=== PATIENT | female | born 1990 | race Caucasian/White ===

== ENCOUNTER 2019-10-09 17:39 | Emergency (ER) | payer OTHER ==
[2019-10-09 18:49] LABS: Urine Bacteria >50 /HPF (<20); Urine RBC <5 /HPF (NONE SEEN)
[2019-10-09 18:50] LABS: Urine Blood NEGATIVE (NEG); Urine Glucose NEGATIVE (NEG); Urine Protein NEGATIVE (NEG); Urine pH 5.5 (5.0-7.0)
--- NOTE | 2019-10-09 18:58 | ER ---
Nurse's Notes [facility] Name: Lluvia Meeks Age: 29 yrs Sex: Female : 1990 Arrival Date: 10/09/2019 Time: 17:43 Bed 8 Private MD: Diagnosis: Otitis media, unspecified, right ear;Acute sinusitis;Urinary tract infection, site not specified Presentation: 10/09 17:50 Chief complaint: Patient states: Cough/congestion for 5 days. Went to urgent care ll1 Sunday, diagnosed with a cold. States she feels worse since then. 31 weeks G3, P0. Denies vaginal bleeding/abdominal cramping. Coronavirus screen: The patient has NOT traveled to [place] in the past 14 days. Proceed with normal triage procedures. Ebola Screen: No symptoms or risks identified at this time. Initial Sepsis Screen: Does the patient meet any 2 criteria? HR > 90 bpm. No. Patient's initial sepsis screen is negative. Does the patient have a suspected source of infection? No. Patient's initial sepsis screen is negative. Risk Assessment: Do you want to hurt yourself or someone else? Patient reports no desire to harm self or others. 17:50 Method Of Arrival: Ambulatory ll1 17:50 Acuity: CONNER 4 ll1 18:03 Onset of symptoms was October 03, 2019. 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 - Social history:: Patient/guardian denies using alcohol, street drugs, tobacco products, Smoking status: Patient denies any tobacco usage or history of. Screenin:03 Abuse screen: Denies threats or abuse. Denies injuries from another. Nutritional sv screening: No deficits noted. Tuberculosis screening: No symptoms or risk factors identified. Fall Risk None identified. Assessment: 18:03 General: Appears in no apparent distress. comfortable, well developed, Behavior is sv calm, cooperative, appropriate for age. Pain: Complains of pain in right ear Pain currently is 8 out of 10 on a pain scale. Neuro: Level of Consciousness is awake, alert, obeys commands, Oriented to person, place, time, situation, Moves all extremities. Full function Gait is steady, Speech is normal. Cardiovascular: Heart tones S1 S2 present Murmur present Patient's skin is warm and dry. Respiratory: Reports cough that is non-productive, persistent congestion Airway is patent Respiratory effort is even, unlabored, Respiratory pattern is regular, symmetrical, Breath sounds are clear bilaterally. 18:03 EENT: Reports nasal congestion since 6 days ago pain in right ear. Derm: Skin is sv intact, Skin is pink, warm \T\ dry. Musculoskeletal: Range of motion: intact in all extremities. 18:12 Reassessment: Verbal order to not obtain UPT per Gabriella Arthur NP. ss 19:08 Reassessment: Patient appears in no apparent distress at this time. Patient is alert, rr5 oriented x 3, equal unlabored respirations, skin warm/dry/pink. discharge instruction given and explained without complaints made. Vital Signs: 17:50 BP 139 / 95; Pulse 114; Resp 19; Temp 98.2; Pulse Ox 100% ; Weight 84.82 kg; Height 5 ll1 ft. 4 in. (162.56 cm); Pain 8/10; 17:50 Body Mass Index 32.10 (84.82 kg, 162.56 cm) ll1 Vitals: 18:26 Heart Tones 156. sv ED Course: 17:43 Patient arrived in ED. fj1 17:43 [facility]. kb 17:43 Reinaldo Cotto MD is Attending Physician. kb 17:52 Triage completed. ll1 17:53 Arm band placed on left wrist. Patient placed in an exam room. ll1 18:02 Amanda Saravia, RN is Primary Nurse. sv 18:03 Patient has correct armband on for positive identification. Placed in gown. Bed in low sv position. Call light in reach. Adult w/ patient. Door closed. Head of bed elevated. 18:03 Flu and/or RSV swab sent to lab. sv 18:10 Urine collected: clean catch specimen, cloudy, sediment noted. dh3 18:15 Awaiting lab results. sv 18:52 Urine Culture Sent. sv 19:04 Primary Nurse role handed off by Amanda Saravia, RN sv 19:09 No provider procedures requiring assistance completed. Patient did not have IV access rr5 during this emergency room visit. Administered Medications: No medications were administered Outcome: 18:57 Discharge ordered by . tre 19:05 Discharged to home ambulatory. rr5 19:05 Condition: stable 19:05 Discharge instructions given to patient, Instructed on discharge instructions, follow up and referral plans. Demonstrated understanding of instructions, follow-up care, medications, Prescriptions given X 1. 19:10 Patient left the ED. rr5 Signatures: Gabriella Arthur, ABIGAIL DORMAN-Amanda Alston, RN RN sv Bailey Harley RN RN Anjelica Bernard 3 Alan Dwyer RN RN rr5 Mo Aviles 1 Holly Yanez RN RN ll1 Corrections: (The following items were deleted from the chart) 18:16 18:03 Respiratory: Reports cough that is non-productive, persistent congestion Airway sv is patent Respiratory effort is even, unlabored, Respiratory pattern is regular, symmetrical, sv 18:16 18:03 EENT: Reports pain in right ear sv sv 18:51 16:03 Flu and/or RSV swab sent to lab. sv sv
--- NOTE | 2019-10-09 18:58 | EDPHYS ---
Physician Documentation [facility] Name: Lluvia Meeks Age: 29 yrs Sex: Female : 1990 Arrival Date: 10/09/2019 Time: 17:43 Bed 8 Private MD: ED Physician Reinaldo Cotto HPI: 10/09 18:09 This 29 yrs old Female presents to ER via Ambulatory with complaints of kb Congestion, Cough. 18:09 The patient or guardian reports sinus and chest congestion. Onset: The symptoms/episode kb began/occurred 6 day(s) ago. Severity of symptoms: At their worst the symptoms were moderate, in the emergency department the symptoms are unchanged. Modifying factors: The symptoms are alleviated by nothing, the symptoms are aggravated by nothing. Associated signs and symptoms: The patient has no apparent associated signs or symptoms. The patient has not experienced similar symptoms in the past. The patient has not recently seen a physician. Pt reports nasal and chest congestion for 6 days. Denies fever. 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 - Social history:: Patient/guardian denies using alcohol, street drugs, tobacco products, Smoking status: Patient denies any tobacco usage or history of. ROS: 18:03 Constitutional: Negative for fever, chills, and weight loss, Neck: Negative for injury, kb pain, and swelling, Cardiovascular: Negative for chest pain, palpitations, and edema, Respiratory: Negative for shortness of breath, cough, wheezing, and pleuritic chest pain, Abdomen/GI: Negative for abdominal pain, nausea, vomiting, diarrhea, and constipation, Back: Negative for injury and pain, MS/Extremity: Negative for injury and deformity, Skin: Negative for injury, rash, and discoloration, Neuro: Negative for headache, weakness, numbness, tingling, and seizure. 18:03 ENT: Positive for ear pain, sinus congestion. Exam: 18:06 Constitutional: This is a well developed, well nourished patient who is awake, alert, kb and in no acute distress. Head/Face: Normocephalic, atraumatic. Neck: Trachea midline, no thyromegaly or masses palpated, and no cervical lymphadenopathy. Supple, full range of motion without nuchal rigidity, or vertebral point tenderness. No Meningismus. Chest/axilla: Normal chest wall appearance and motion. Nontender with no deformity. No lesions are appreciated. Cardiovascular: Regular rate and rhythm with a normal S1 and S2. No gallops, murmurs, or rubs. Normal PMI, no JVD. No pulse deficits. Respiratory: Lungs have equal breath sounds bilaterally, clear to auscultation and percussion. No rales, rhonchi or wheezes noted. No increased work of breathing, no retractions or nasal flaring. Abdomen/GI: Soft, non-tender, with normal bowel sounds. No distension or tympany. No guarding or rebound. No evidence of tenderness throughout. Skin: Warm, dry with normal turgor. Normal color with no rashes, no lesions, and no evidence of cellulitis. MS/ Extremity: Pulses equal, no cyanosis. Neurovascular intact. Full, normal range of motion. Neuro: Awake and alert, GCS 15, oriented to person, place, time, and situation. Cranial nerves II-XII grossly intact. Motor strength 5/5 in all extremities. Sensory grossly intact. Cerebellar exam normal. Normal gait. 18:06 ENT: External ear(s): are unremarkable, Ear canal(s): are normal, TM's: bulging, on the right, erythema, that is moderate, on the right, Nose: is normal, Mouth: is normal, Posterior pharynx: is normal. Vital Signs: 17:50 BP 139 / 95; Pulse 114; Resp 19; Temp 98.2; Pulse Ox 100% ; Weight 84.82 kg; Height 5 ll1 ft. 4 in. (162.56 cm); Pain 8/10; 17:50 Body Mass Index 32.10 (84.82 kg, 162.56 cm) ll1 MDM: 17:56 Patient medically screened. kb 18:03 Data reviewed: vital signs, nurses notes. Data interpreted: Pulse oximetry: on room air kb is 100 %. Interpretation: normal. 18:08 ED course: Educated on use of zyrtec and flonase. Pt has been taking robitussin and kb zyrtec for her symptoms already. Will prescribe antibiotics for right otitis media. . 18:57 Counseling: I had a detailed discussion with the patient and/or guardian regarding: the kb historical points, exam findings, and any diagnostic results supporting the discharge/admit diagnosis, lab results, the need for outpatient follow up, an OB/Gyne specialist, to return to the emergency department if symptoms worsen or persist or if there are any questions or concerns that arise at home. 10/09 17:54 Order name: Flu; Complete Time: 18:56 kb 10/09 18:11 Order name: Urine Microscopic Only; Complete Time: 18:52 kb 10/09 17:54 Order name: Urine Dipstick-Ancillary (obtain specimen); Complete Time: 18:10 kb 10/09 18:12 Order name: FHT's; Complete Time: 18:26 kb 10/09 18:13 Order name: Urine Dipstick--Ancillary (enter results); Complete Time: 18:52 dh4 10/09 18:51 Order name: Urine Culture EDMS Administered Medications: No medications were administered Disposition: 10/09/19 18:57 Discharged to Home. Impression: Otitis media, unspecified, right ear, Acute sinusitis, Urinary tract infection, site not specified. - Condition is Stable. - Discharge Instructions: Otitis Media, Adult, [id number], Sinusitis, Adult, [id number], and Urinary Tract Infection. - Prescriptions for Amoxicillin 875 mg Oral Tablet - take 1 tablet by ORAL route every 12 hours for 7 days; 14 tablet. - Medication Reconciliation Form, Thank You Letter, Antibiotic Education, Prescription Opioid Use, Work release form form. - Follow up: Emergency Department; When: As needed; Reason: Worsening of condition. Follow up: Private Physician; When: 2 - 3 days; Reason: Recheck today's complaints, Continuance of care, Re-evaluation by your physician. Addendum: 10/30/2019 07:21 Co-signature as Attending Physician, Reinaldo Cotto MD Available for consultation at p s1 all times. . Signatures: Dispatcher [employer] EDMS Gabriella Arthur, ABIGAIL DORMAN-Amanda Alston RN RN sv Singer, Phillip, MD MD [facility] Alan Dwyer RN RN rr5 Beau, Lynsay, RN RN ll1 Corrections: (The following items were deleted from the chart) 10/09 19:10 18:57 10/09/2019 18:57 Discharged to Home. Impression: Otitis media, unspecified, right rr5 ear; Acute sinusitis; Urinary tract infection, site not specified. Condition is Stable. Discharge Instructions: Otitis Media, Adult, [id number], Sinusitis, Adult, [id number]. Prescriptions for Amoxicillin 875 mg Oral Tablet - take 1 tablet by ORAL route every 12 hours for 7 days; 14 tablet. and Forms are Medication Reconciliation Form, Thank You Letter, Antibiotic Education, Prescription Opioid Use. Follow up: Emergency Department; When: As needed; Reason: Worsening of condition. Follow up: Private Physician; When: 2 - 3 days; Reason: Recheck today's complaints, Continuance of care, Re-evaluation by your physician. kb
[2019-10-09 19:21] VITALS: BP 139/95; TEMP 98.2; O2SAT 100
== END 2019-10-09 19:10 | disposition home or self-care (01) ==
LOC: ER 17:39
DX: J01.90 Acute sinusitis, unspecified (principal); H66.91 Otitis media, unspecified, right ear; N39.0 Urinary tract infection, site not specified
CPT/HCPCS: 81003; 81015; 87086; 87088; 87804; 99283

== ENCOUNTER 2020-12-31 03:48 | Emergency (ER) | payer OTHER ==
--- NOTE | 2020-12-31 06:03 | ER ---
Nurse's Notes [facility] Name: Lluvia Costa Age: 30 yrs Sex: Female : 1990 Arrival Date: 12/31/2020 Time: 03:51 Bed 20 Private MD: Diagnosis: Acute tonsillitis Presentation: 12/31 04:52 Chief complaint: Patient states: woke up with her throat feeling swollen and it's hard iw to breathe because of it, started having a lot of nasal drainage two nights ago, no fever. Coronavirus screen: At this time, the client does not indicate any symptoms associated with coronavirus-19. Ebola Screen: Patient negative for fever greater than or equal to 101.5 degrees Fahrenheit, and additional compatible Ebola Virus Disease symptoms Patient denies exposure to infectious person. Patient denies travel to an Ebola-affected area in the 21 days before illness onset. No symptoms or risks identified at this time. Initial Sepsis Screen: Does the patient meet any 2 criteria? No. Patient's initial sepsis screen is negative. Does the patient have a suspected source of infection? No. Patient's initial sepsis screen is negative. Risk Assessment: Do you want to hurt yourself or someone else? Patient reports no desire to harm self or others. Onset of symptoms was December 30, 2020. 04:52 Method Of Arrival: Ambulatory iw 04:52 Acuity: CONNER 4 iw Historical: - Allergies: 04:55 Ciprofloxacin; iw 04:55 Zithromax; iw - Home Meds: 04:55 None [Active]; iw - PMHx: 04:55 tetralogy of fallot; iw - PSHx: 04:55 repair of tetralogy of fallot; ear surgery; ; iw - Immunization history:: Adult Immunizations not up to date, Client reports having NOT received the Covid vaccine. - Social history:: Smoking status: Patient denies any tobacco usage or history of. Screenin:56 Abuse screen: Denies threats or abuse. Denies injuries from another. Nutritional iw screening: No deficits noted. Tuberculosis screening: No symptoms or risk factors identified. Fall Risk None identified. Assessment: 04:55 General: Appears in no apparent distress. comfortable, Behavior is calm, cooperative. iw Pain: Complains of pain in throat. Neuro: Level of Consciousness is awake, alert, obeys commands, Oriented to person, place, time, situation. Cardiovascular: Rhythm is regular. Respiratory: Airway is patent Respiratory effort is even, unlabored. 05:00 Respiratory: Reports cough that is non-productive, Breath sounds are clear bilaterally. iw EENT: Throat is pink has enlarged tonsils bilaterally. Derm: Skin is intact, is healthy with good turgor. Musculoskeletal: Range of motion: intact in all extremities. Vital Signs: 04:52 BP 140 / 93; Pulse 80; Resp 16; Pulse Ox 99% on R/A; Weight 86.18 kg; Height 5 ft. 4 iw in. (162.56 cm); 04:52 Body Mass Index 32.61 (86.18 kg, 162.56 cm) iw ED Course: 03:51 Patient arrived in ED. bp1 04:54 Triage completed. iw 04:55 Piper Schultz, RN is Primary Nurse. iw 04:55 Arm band placed on. iw 05:18 Brian Torres MD is Attending Physician. john 06:01 Gerald Rosa DO is Referral Physician. john 06:28 Chest Single View XRAY In Process Unspecified. EDMS 06:45 No provider procedures requiring assistance completed. Patient did not have IV access iw during this emergency room visit. Administered Medications: 06:29 Drug: Decadron (dexamethasone) 10 mg Route: IM; Site: right ventrogluteal; iw 06:30 Drug: Bicillin L-A (penicillin G Benzathine) 1.8 million units Route: IM; Site: right iw ventrogluteal; Outcome: 06:02 Discharge ordered by . john 06:53 Patient left the ED. iw Signatures: Dispatcher [employer] EDMS Brian Torres MD MD cha Williams, Irene, RN RN iw Adele Gonsalez bp1 Corrections: (The following items were deleted from the chart) 05:00 04:55 Neuro: Level of Consciousness is awake, alert, obeys commands, Oriented to iw person, place, time, situation, iw
--- NOTE | 2020-12-31 06:03 | EDPHYS ---
Physician Documentation [facility] Name: Lluvia Costa Age: 30 yrs Sex: Female : 1990 Arrival Date: 12/31/2020 Time: 03:51 Bed 20 Private MD: ED Physician Brian Torres HPI: 12/31 05:58 This 30 yrs old Female presents to ER via Ambulatory with complaints of john Breathing Difficulty. 05:58 The patient has shortness of breath at rest. Onset: The symptoms/episode began/occurred john 1 day(s) ago. Duration: The symptoms are continuous, and are unchanged since they started. The patient's shortness of breath has no apparent modifying factors. Associated signs and symptoms: The patient has no apparent associated signs or symptoms. Severity of symptoms: At their worst the symptoms were mild in the emergency department the symptoms are unchanged. Historical: - Allergies: 04:55 Ciprofloxacin; iw 04:55 Zithromax; iw - Home Meds: 04:55 None [Active]; iw - PMHx: 04:55 tetralogy of fallot; iw - PSHx: 04:55 repair of tetralogy of fallot; ear surgery; ; iw - Immunization history:: Adult Immunizations not up to date, Client reports having NOT received the Covid vaccine. - Social history:: Smoking status: Patient denies any tobacco usage or history of. ROS: 05:59 Constitutional: Negative for fever, chills, and weight loss, Eyes: Negative for injury, john pain, redness, and discharge, Neck: Negative for injury, pain, and swelling, Cardiovascular: Negative for chest pain, palpitations, and edema, Respiratory: Negative for shortness of breath, cough, wheezing, and pleuritic chest pain, Abdomen/GI: Negative for abdominal pain, nausea, vomiting, diarrhea, and constipation, Back: Negative for injury and pain, : Negative for injury, bleeding, discharge, and swelling, MS/Extremity: Negative for injury and deformity, Skin: Negative for injury, rash, and discoloration, Neuro: Negative for headache, weakness, numbness, tingling, and seizure, Psych: Negative for depression, anxiety, suicide ideation, homicidal ideation, and hallucinations, Allergy/Immunology: Negative for hives, rash, and allergies, Endocrine: Negative for neck swelling, polydipsia, polyuria, polyphagia, and marked weight changes, Hematologic/Lymphatic: Negative for swollen nodes, abnormal bleeding, and unusual bruising. 05:59 ENT: Positive for sore throat. Exam: 05:59 Constitutional: This is a well developed, well nourished patient who is awake, alert, john and in no acute distress. Head/Face: Normocephalic, atraumatic. Eyes: Pupils equal round and reactive to light, extra-ocular motions intact. Lids and lashes normal. Conjunctiva and sclera are non-icteric and not injected. Cornea within normal limits. Periorbital areas with no swelling, redness, or edema. Neck: Trachea midline, no thyromegaly or masses palpated, and no cervical lymphadenopathy. Supple, full range of motion without nuchal rigidity, or vertebral point tenderness. No Meningismus. Chest/axilla: Normal chest wall appearance and motion. Nontender with no deformity. No lesions are appreciated. Cardiovascular: Regular rate and rhythm with a normal S1 and S2. No gallops, murmurs, or rubs. Normal PMI, no JVD. No pulse deficits. Respiratory: Lungs have equal breath sounds bilaterally, clear to auscultation and percussion. No rales, rhonchi or wheezes noted. No increased work of breathing, no retractions or nasal flaring. Abdomen/GI: Soft, non-tender, with normal bowel sounds. No distension or tympany. No guarding or rebound. No evidence of tenderness throughout. Back: No spinal tenderness. No costovertebral tenderness. Full range of motion. Skin: Warm, dry with normal turgor. Normal color with no rashes, no lesions, and no evidence of cellulitis. MS/ Extremity: Pulses equal, no cyanosis. Neurovascular intact. Full, normal range of motion. Neuro: Awake and alert, GCS 15, oriented to person, place, time, and situation. Cranial nerves II-XII grossly intact. Motor strength 5/5 in all extremities. Sensory grossly intact. Cerebellar exam normal. Normal gait. Psych: Awake, alert, with orientation to person, place and time. Behavior, mood, and affect are within normal limits. 05:59 ENT: Posterior pharynx: Tonsils: bilaterally enlarged, with erythema, with exudate, Uvula: midline, non-edematous, no erythema, swelling, that is mild, erythema, that is mild, exudate, is not appreciated, peritonsillar mass, is not appreciated, pooling of secretions, is not appreciated. Vital Signs: 04:52 BP 140 / 93; Pulse 80; Resp 16; Pulse Ox 99% on R/A; Weight 86.18 kg; Height 5 ft. 4 iw in. (162.56 cm); 04:52 Body Mass Index 32.61 (86.18 kg, 162.56 cm) MDM: 05:18 Patient medically screened. [facility] 06:00 Differential diagnosis: Bronchitis reactive airway disease. Antibiotic administration: [facility] Not indicated. The patient's Wells Deep Vein Thrombosis Score was calculated as follows: Total Score: 0-2 Pts- Low Risk. Differential Diagnosis: Obstructed Airway Bronchitis Influenza Upper Respiratory Infection Sinusitis Pharyngitis Otitis Media Pneumonia. The patient's pulmonary embolism risk score was calculated as follows: Total Score: 0-2 points. This patient was found to be at low risk for a pulmonary embolism by using the Well's assessment criteria. Immunization status:. Data reviewed: vital signs, nurses notes. Data interpreted: pleater hand: rate is 80 beats/min, Pulse oximetry: is not applicable for this patient encounter. 12/31 05:13 Order name: Strep 12/31 05:14 Order name: Group A Streptococcus Rapid Sc [facility] 12/31 06:03 Order name: Chest Single View XRAY [facility] 12/31 06:10 Order name: Throat Culture [facility] Administered Medications: 06:29 Drug: Decadron (dexamethasone) 10 mg Route: IM; Site: right ventrogluteal; 06:30 Drug: Bicillin L-A (penicillin G Benzathine) 1.8 million units Route: IM; Site: right iw ventrogluteal; Disposition: 12/31/20 06:02 Discharged to Home. Impression: Acute tonsillitis. - Condition is Stable. - Discharge Instructions: Tonsillitis, Tonsillitis, [id number]. - Medication Reconciliation Form, Thank You Letter, Antibiotic Education, Prescription Opioid Use, Work release form form. - Follow up: Private Physician; When: 2 - 3 days; Reason: Recheck today's complaints, Continuance of care, Re-evaluation by your physician. Follow up: Gerald Rosa DO; When: 2 - 3 days; Reason: Recheck today's complaints, Continuance of care, Re-evaluation by your physician. - Problem is new. - Symptoms have improved. Signatures: Dispatcher [employer] Brian Raphael MD MD cha Williams, Irene, RN RN iw Corrections: (The following items were deleted from the chart) 06:53 06:02 12/31/2020 06:02 Discharged to Home. Impression: Acute tonsillitis. Condition is iw Stable. Forms are Medication Reconciliation Form, Thank You Letter, Antibiotic Education, Prescription Opioid Use. Follow up: Private Physician; When: 2 - 3 days; Reason: Recheck today's complaints, Continuance of care, Re-evaluation by your physician. Follow up: Gerald Rosa; When: 2 - 3 days; Reason: Recheck today's complaints, Continuance of care, Re-evaluation by your physician. Problem is new. Symptoms have improved. john
[2020-12-31] MEDS ORDERED: dexAMETHasone 10 MG/ML VIAL ONE (06:36)
[2020-12-31] MEDS ORDERED: PEN G BENZ LA 2.4 MU/4 ML SYRINGE IM ONE (06:36)
[2020-12-31 07:08] VITALS: BP 140/93; O2SAT 99
--- NOTE | 2020-12-31 08:55 | RAD REPORT ---
EXAM DESCRIPTION: RAD - Chest Single View - 12/31/2020 6:28 am CLINICAL HISTORY: COUGH Chest pain. COMPARISON: No comparisons FINDINGS: Portable technique limits examination quality. The lungs are grossly clear. The heart is upper limit of normal in size. Sternotomy wires. IMPRESSION: No acute intrathoracic process suspected.
== END 2020-12-31 06:53 | disposition home or self-care (01) ==
LOC: ER 03:48
DX: J03.90 Acute tonsillitis, unspecified (principal); Z88.1 Allergy status to other antibiotic agents
CPT/HCPCS: 87070; 87081; 71045; 96372; 99283; J0561; J1100

== ENCOUNTER 2022-07-31 12:59 | Emergency (ER) | payer BC, OTHER ==
--- OUTSIDE RECORDS SUMMARY | 2022-07-31 13:02 | XMS REPORT | Continuity of Care Document ---
:1990 Author Organization [facility] t Address [address] [place] [address] Dr. [address] [place] [address] Care Team Providers Name Role Phone Yvette Vasquez Attending Clinician Unavailable Marie Watts Attending Clinician Unavailable Darcy Valdivia PA-C Attending Clinician UNKNOWN, ATTENDING Attending Clinician Unavailable KNOW, DOES_NOT Admitting Clinician Unavailable Yvette Vasquez Admitting Clinician Unavailable Payers Payer Name Policy Type Policy Number Effective Date Expiration Date [facility] [id number] 2019 CHOICE MEDICAID 00:00:00 Problems This patient has no known problems. Allergies, Adverse Reactions, Alerts Allergy Allergy Status Severity Reaction(s) Onset Inactive Treating Comm ents Source Name Type Date Date Clinician ciproflo DA Active U 2020-0 [facility] xacin 3-23 Clear 00:00: Otto 00 [facility] azithrom DA Active U 2020-0 [facility] ycin 3-23 Clear 00:00: Otto 00 [facility] ciproflo DA Active U HIVES 2020-0 [facility] xacin 3-23 Clear 00:00: Otto 00 [facility] azithrom DA Active U HIVES 2020-0 [facility] ycin 3-23 Clear 00:00: Otto 00 [facility] No Known DA Active U 2020-0 [facility] Drug [facility]- [facility] [place] No Known DA Active U [facility] Drug 3-23 [facility]: [facility] [place] AZITHROM DRUG Active Hives 2019- Univers MARY INGREDI 1-09 ity of 00:00: [address] [place] CIPROFLO DRUG Active Low Hives 2018-08 Univers JESSICA INGREDI 2-12 ity of 00:00: [address] [place] NO KNOWN Drug Active Univers ALLERGIE Class ity of [facility] Medications This patient has no known medications. Procedures Procedure Date / Time Performed Performing Clinician [facility] e [id number] 2019-11-20 00:00:[address] [facility] Encounters Start End Encounter Admission Attending Care Care Encounter Source Date/Time Date/Time Type Type Clinicians Facility Department ID 2019-11-26 Inpatient [facility]INE [id number] [facility] 18:30:00 99 [facility] [place] 2019-11-20 Inpatient Vasquez, [facility] [id number] [facility] 13:00:00 Marelli 90 [facility] [place] 2019-11-03 Inpatient [facility], [facility] ROSIE [id number] [facility] 15:09:00 Marelli 71 [facility] [place] 2019-08-26 [facility] RADI [id number] [facility] 08:30:00 Marelli 83 [facility] [place] 2021-07-02 2021-07-03 Emergency EM Watts, [facility] [id number] [facility] 20:14:00 00:03:00 Marie 26 [facility] [place] 2019-11-27 2019-11-27 Outpatient Vasquez, [facility] [id number] [facility] 09:11:00 09:11:00 Marivon 07 [facility] 2019-11-18 2019-11-18 Outpatient Vasquez, [facility] [id number] [facility] 12:21:00 12:21:00 Yvette 63 [facility] 2019-10-06 2019-10-06 [place] [id number] 19:36:48 19:51:48 [facility] [id number] Surgical [id number] Special [id number] es 370 [place] 2019-10-06 2019-10-06 Outpatient R UNKNOWN, [facility] [id number] Univers 19:30:00 19:30:00 ATTENDING itkareen [facility] Results Test Description Test Time Test Comments Results Result Comments Source COMPREHENSIVE METABOLIC PANEL 2021-07-02 21:31:00 Test Item Value Reference Range Interpretation Comme nts SODIUM (test code = NA) 128 mEq/L 135-145 L POTASSIUM (test code = K) 3.3 mEq/L 3.5-5.0 L CHLORIDE (test code = CL) 100 mEq/L 100-115 N CARBON DIOXIDE (test code = CO2) 27 mEq/L 22-31 N ANION GAP (test code = GAP) 3.90 10-20 L GLUCOSE (test code = GLU) 98 mg/dL 65-110 N BLOOD UREA NITROGEN (test code = BUN) 8 mg/dL 7-18 N GLOMERULAR FILTRATION RATE (test code = GFR) 75 ml/min >60 N CREATININE (test code = CREAT) 0.9 mg/dL 0.5-1.0 N TOTAL PROTEIN (test code = PROT) 7.5 gm/dL 6.3-8.2 N ALBUMIN (test code = ALB) 3.4 gm/dL 3.4-4.8 N CALCIUM (test code = CA) 8.2 mg/dL 8.4-10.2 L BILIRUBIN TOTAL (test code = BILT) 0.4 mg/dL 0.2-1.0 N SGOT/AST (test code = AST) 14 units/L 15-37 L SGPT/ALT (test code = ALT) 23 units/L 12-78 N ALKALINE PHOSPHATASE TOTAL (test code = ALKP) 96 units/L 46-116 N UA RFLX MICR CULT IF [id number] 21:02:00 Test Item Value Reference Range Interpretation Comments UA COLOR (test code = RED YELLOW A COLU) UA APPEARANCE (test code CLOUDY CLEAR A = APPU) UA GLUCOSE DIPSTICK (test NEGATIVE NEG code = DGLUU) UA BILIRUBIN DIPSTICK NEGATIVE NEG (test code = BILU) UA KETONE DIPSTICK (test NEGATIVE NEG code = KETU) UA SPECIFIC GRAVITY (test 1.031 1.001-1.035 N code = SGU) UA BLOOD DIPSTICK (test 3+ NEG A code = KIM) UA PH DIPSTICK (test code 5.0 5-9 = DEIRDRE) UA PROTEIN DIPSTICK (test 2+ NEG A code = PROU) UA UROBILINIOGEN DIPSTICK 2.0 mg/dL NEG (test code = URO) UA NITRITE DIPSTICK (test NEG NEG code = KENTON) UA LEUKOCYTE ESTERASE 1+ NEG A DIPSTICK (test code = LEUU) UA WBC (test code = WBCU) 3-5 #/hpf NONE SEEN A UA EPITHELIAL CELLS (test NONE SEEN #/HPF RARE-FEW code = EPIU) UA RBC (test code = RBCU) TOO NUMEROUS TO CNT NONE SEEN A #/hpf UA BACTERIA (test code = RARE /HPF RARE-FEW BACU) UA MUCUS (test code = 1+ NONE SEEN MUCU) Indication for culture: Dysuria/FrequencySpecimen Description: CLEAN CATCHUR HCG [id number] 21:02:00 Test Item Value Reference Range Interpretation Comments UR HCG QUAL (test code = HCGQLU) POSITIVE Indication for culture: Dysuria/FrequencySpecimen Description: CLEAN CATCHCBC W/AUTO [id number] 20:54:00 Test Item Value Reference Range Interpretation Comments WHITE BLOOD CELL (test code = WBC) 9.3 K/mm3 6.5-12.3 N RED BLOOD CELL (test code = RBC) 4.40 M/mm3 3.51-4.69 N HEMOGLOBIN (test code = HGB) 11.0 g/dL 10.1-13.8 N HEMATOCRIT (test code = HCT) 35.9 % 32.5-41.8 N MEAN CELL VOLUME (test code = MCV) 81.6 fL 84.6-96.6 L MEAN CELL HGB (test code = MCH) 25.0 pg 27.3-33.9 L MEAN CELL HGB CONCETRATION (test 30.6 gm/dL 32.0-34.2 L code = MCHC) RED CELL DISTRIBUTION WIDTH (test 16.0 % 12.2-16.3 N code = RDW) PLATELET COUNT (test code = PLT) 244 K/mm3 134-363 N MEAN PLATELET VOLUME (test code = 11.2 fL 9.2-12.7 N MPV) NEUTROPHIL % (test code = NT%) 67.4 % 57.9-77.3 N LYMPHOCYTE % (test code = LY%) 22.3 % 14.5-29.7 N MONOCYTE % (test code = MO%) 7.2 % 3.6-10.2 N EOSINOPHIL % (test code = EO%) 2.3 % 0.0-3.0 N BASOPHIL % (test code = BA%) 0.6 % 0.1-0.9 N NEUTROPHIL # (test code = NT#) 6.2 K/mm3 LYMPHOCYTE # (test code = LY#) 2.1 K/mm3 MONOCYTE # (test code = MO#) 0.7 K/mm3 EOSINOPHIL # (test code = EO#) 0.21 K/mm3 BASOPHIL # (test code = BA#) 0.1 K/mm3 RBC MORPHOLOGY REQUIRED (test code NORMAL NORMAL = RBCM) PLATELET MORPHOLOGY REQUIRED (test NORMAL NORMAL code = PLTMR) - US TRANSVAGINAL [id number] 00:00:00 [facility] 1990 Sex: F Patient Name: HEIDI MADRID Unit No: [id number] EXAMS: CPT CODE: [id number] US TRANSVAGINAL W/PELVIS [id number] INFORMATION: Exam: US Pelvis Complete (Transabdominal), Pelvis (Transvaginal), and US Duplex Artery or Vein (Ovaries) Limited Exam date and time: 07/02/2021 9:26 PM Age: 30 years old Clinicalindication: Pelvic pain; Prior surgery; Surgery type: D c, c/section; Additional info: Post op d c, p elvic pain, vag bleed TECHNIQUE: Imaging protocol: Real-time transabdominal and transvaginal pelvic ultrasound (complete) with image documentation. Transvaginal imaging was used for better evaluation of the endometrium, adnexa, and/or cervix. Real-time duplex ultrasound scan of the arterial or venous flow of the ovaries with B-mode, color Doppler flow and spectral waveform analysis. Complete Pelvis, Limited Duplex. COMPARISON: OT US FLW UP 11/03/2019 3:49 PM FINDINGS: Uterus: Anteverted uterus measures 10.4 cm in length. Endometrial stripe is 15 mm in thickness. No increased endometrial Doppler vascularity. Right ovary/adnexa: Right ovary measures 2.2 x 1.6 x 1.8 cm, normal. Normal duplexof the ovary. Normal Doppler waveforms and color flow. Left ovary/adnexa: Left ovary measures 1.5 x 1.4 x 1.2 cm, normal. Normal duplex of the ovary. Normal Doppler waveforms and color flow. Intraperitoneal space: No intraperitoneal fluid. Urinary bladder: Visualized bladder is unremarkable. IMPRESSION: 1. Continued endometrial thickening estimated at 15 mm. Doppler images show no residual evidence for retained products of conception. 2. Negative adnexa. at 2344 Reported and signed by: Dajuan Link MD CC: Marie Watts MD; Yvette Vasquez DO Technologist: Marbella Downey RDMS Probe: [id number] Trnscrbd D/ (7203) GCD.CPS Orig Print D/T: S: 07/02/2021 (7958) [facility] NAME: HEIDI MADRID Radiology Department PHYS: Marie Kuhn MD [address] : 1990 AGE: 30 SEX: F [place], [place] [address] LOC: [place] PHONE #: [phone] EXAM DATE: 07/02/2021 STATUS: REG ER FAX #: [phone] RAD NO: Page 1 Signed Report Patient Name: HEIDI MADRID Unit No: [id number] EXAMS: CPT CODE: [id number] US TRANSVAGINAL W/PELVIS 40684 (Continued) [facility] NAME: HEIDI MADRID Radiology Department PHYS: Marie Kuhn MD [address] : 1990AGE: 30 SEX: F [place], [place] [address] LOC: [place] PHONE #: [phone] EXAM DATE: 07/02/2021 STATUS: REG ER FAX #: [phone] RAD NO: Page 2 Signed Report- DUP AB/PEL/SC/[id number] 00:00:00 [facility] : 1990 Sex: F Patient Name: HEIDI MADRID Unit No: [id number] EXAMS: CPT CODE: [id number] DUP AB/PEL/SC/LTD 54065 PROCEDURE INFORMATION: Exam: US Pelvis Complete (Transabdominal), Pelvis (Transvaginal), and US Duplex Artery or Vein (Ovaries) Limited Exam date and time: 07/02/2021 9:26 PM Age: 30 years old Clinical indication: Pelvic pain; Prior surgery; Surgery type: D c, c/section; Additional info: Post op d c, pelvic pain, vag bleed TECHNIQUE: Imaging protocol: Real-time transabdominal and transvaginal pelvic ultrasound (complete) with image documentation. Transvaginal imaging was used for better evaluation of theendometrium, adnexa, and/or cervix. Real-time duplex ultrasound scan of the arterial or venous flow of the ovaries with B-mode, color Doppler flow and spectral waveform analysis. Complete Pelvis, Limited Duplex. COMPARISON: OT US FLW UP 11/03/2019 3:49 PM FINDINGS: Uterus: Anteverted uterus measures 10.4 cm in length. Endometrial stripe is 15 mm in thickness. No increased endometrial Dopplervascularity. Right ovary/adnexa: Right ovary measures 2.2 x 1.6 x 1.8 cm, normal. Normal duplex of the ovary. Normal Doppler waveforms and color flow. Left ovary/adnexa: Left ovary measures 1.5 x 1.4 x1.2 cm, normal. Normal duplex of the ovary. Normal Doppler waveforms and color flow. Intraperitonealspace: No intraperitoneal fluid. Urinary bladder: Visualized bladder is unremarkable. IMPRESSION: 1. Continued endometrial thickening estimated at 15 mm. Doppler images show no residual evidence for retained products of conception. 2. Negative adnexa. at 2344 Reported and signed by: Dajuan Link MD CC: Marie Watts MD; Yvette Vasquez DO Technologist: Marbella Downey RDMS Probe: Trnscrbd D/ (6244) GCD.CPS Orig Print D/T: S: 07/02/2021 (0745) [facility] NAME: HEIDI MADRID Radiology DepartmentPHYS: Marie Kuhn MD [address] : 1990 AGE: 30 SEX: F [place] [address] LOC: [place] PHONE #: [phone] EXAM DATE: 07/02/2021 STATUS: REG ER FAX #: RAD NO: Page 1 Signed Report Patient Name: BRITTANY MADRIDYTLYN Unit No: [id number] EXAMS: CPT CODE: [id number] DUP AB/PEL/SC/LTD 66054 (Continued) [facility] NAME: SHAJI MADRIDNRadiology Department PHYS: Marie Kuhn MD [address] : 1990 AGE: 30 SEX: F [place] [address] LOC: [place] PHONE #: [phone] EXAM DATE: 07/02/2021 STATUS: [facility] [place] FAX #: [phone] RAD NO: Page 2 Signed Report- US PELVIS [id number] 00:00:00 [facility] 1990 Sex: F Patient Name: HEIDI MADRID Unit No: [id number] EXAMS: CPT CODE: [id number] US PELVIS COMPLETE 59009 PROCEDURE INFORMATION: Exam: US Pelvis Complete (Transabdominal), Pelvis (Transvaginal), and US Duplex Artery or Vein (Ovaries) Limited Exam date and time: 07/02/2021 9:26 PM Age: 30 years old Clinical indication: Pelvic pain; Prior surgery; Surgery type: D c, c/section; Additional info: Post op d c, pelvi c pain, vag bleed TECHNIQUE: Imaging protocol: Real-time transabdominal and transvaginal pelvic ultrasound (complete) with image documentation. Transvaginal imaging was used for better evaluation of the endometrium, adnexa, and/or cervix. Real-time duplex ultrasound scan of the arterial or venous flowof the ovaries with B-mode, color Doppler flow and spectral waveform analysis. Complete Pelvis, Limited Duplex. COMPARISON: OT US FLW UP 11/03/2019 3:49 PM FINDINGS: Uterus: Anteverted uterus measures 10.4 cm in length. Endometrial stripe is 15 mm in thickness. No increased endometrial Doppler vascularity. Right ovary/adnexa: Right ovary measures 2.2 x 1.6 x 1.8 cm, normal. Normal duplex of the ovary. Normal Doppler waveforms and color flow. Left ovary/adnexa: Left ovary measures 1.5 x 1.4 x 1.2 cm, normal. Normal duplex of the ovary. Normal Doppler waveforms and color flow. Intraperitoneal space: No intraperitoneal fluid. Urinary bladder: Visualized bladder is unremarkable. IMPRESSION: 1. Continued endometrial thickening estimated at 15 mm. Doppler images show no residual evidence for retained products of conception. 2. Negative adnexa. at 2344 Reported and signed by: Dajuan Link MD CC: Marie Watts MD; Yvette Vasquez DO Technologist: Marbella Downey RDMS Probe: Trnscrbd D/ (7784) GCD.CPS Orig Print D/T: S: 07/02/2021 (0975) [facility] NAME: HEIDI MADRID Radiology Department PHYS: Marie Kuhn MD [address] : 1990 AGE: 30 SEX: F [place] [address] LOC: [place] PHONE #: [phone] EXAM DATE: 07/02/2021 STATUS: REG ER FAX #: [phone] RAD NO: Page 1 Signed Report Patient Name: HEIDI MADRID Unit No: [id number] EXAMS: CPT CODE: [id number] US PELVIS COMPLETE 04405 (Continued) [facility] NAME: BRITTANY MADRIDYTLYN Radiology Department PHYS: Marie Kuhn MD [address] : 1990 AGE: 30 SEX: F [place] [address] LOC: [place] PHONE #: [phone] EXAM DATE: 07/02/2021 STATUS: REG ER FAX #: [phone] RAD NO: Page 2 Signed ReportCHEMISTRY 7 [id number] 05:57:00 Test Item Value Reference Range Interpretation Comments SODIUM (test code = NA) 142 mEq/L 135-145 N POTASSIUM (test code = K) 4.0 mEq/L 3.5-5.0 N CHLORIDE (test code = CL) 108 mEq/L 100-115 N CARBON DIOXIDE (test code = CO2) 26 mEq/L 22-31 N ANION GAP (test code = GAP) 12.30 10-20 N GLUCOSE (test code = GLU) 96 mg/dL 65-110 N BLOOD UREA NITROGEN (test code = 13 mg/dL 7-18 N BUN) GLOMERULAR FILTRATION RATE (test 86 ml/min >60 N code = GFR) CREATININE (test code = CREAT) 0.8 mg/dL 0.5-1.0 N CALCIUM (test code = CA) 8.3 mg/dL 8.4-10.2 L [id number] 05:57:00 Test Item Value Reference Range Interpretation Comments MAGNESIUM (test code = MAG) 1.8 mg/dL 1.8-2.4 N CBC W/AUTO [id number] 05:45:00 Test Item Value Reference Range Interpretation Comments WHITE BLOOD CELL (test code = WBC) 6.9 K/mm3 6.6-12.1 N RED BLOOD CELL (test code = RBC) 3.49 M/mm3 3.45-5.01 N HEMOGLOBIN (test code = HGB) 9.8 g/dL 10.7-13.9 L HEMATOCRIT (test code = HCT) 32.1 % 32.1-42.1 N MEAN CELL VOLUME (test code = MCV) 92 fL 84.1-94.8 N MEAN CELL HGB (test code = MCH) 28.1 pg 27-35 N MEAN CELL HGB CONCETRATION (test 30.5 gm/dL 32.2-34.1 L code = MCHC) RED CELL DISTRIBUTION WIDTH (test 14.5 % 12.4-16.5 N code = RDW) PLATELET COUNT (test code = PLT) 247 K/mm3 133-385 N MEAN PLATELET VOLUME (test code = 10.8 fl 9.1-12.7 N MPV) NEUTROPHIL % (test code = NT%) 58.9 % 56.5-79.4 N LYMPHOCYTE % (test code = LY%) 30.9 % 14.3-34.3 N MONOCYTE % (test code = MO%) 7.4 % 5.1-10.4 N EOSINOPHIL % (test code = EO%) 1.6 % 0.1-3.0 N BASOPHIL % (test code = BA%) 0.6 % 0.1-1.0 N NEUTROPHIL # (test code = NT#) 4.0 K/mm3 LYMPHOCYTE # (test code = LY#) 2.1 K/mm3 MONOCYTE # (test code = MO#) 0.5 K/mm3 EOSINOPHIL # (test code = EO#) 0.11 K/mm3 BASOPHIL # (test code = BA#) 0.0 K/mm3 RBC MORPHOLOGY REQUIRED (test code NORMAL NORMAL = RBCM) PLATELET MORPHOLOGY REQUIRED (test NORMAL NORMAL code = PLTMR) Coronavirus 2019 nCoV [id number] 09:54:00 Test Item Value Reference Range Interpretation Comments Coronavirus 2019 nCoV Negative Negative RESUL TS CALLED TO Bedside (test code = PRUDENC E,BREAD BACK & [id number]) CONFIRMED? JOANNA TapiaLAB.KS 11/27/19 0954 T his result does not rule out co-infections w ith otherpathogens. * False negative result s may occur if a spec imen isimproperly co llected, transported or handled. False negativer esults may also occur if amplification i nhibitors arepresent in t he specimen or if inadequate leve ls of virusesare pres ent in the specimen. * As with any molecular t est, if the virus mutat es in thetarget regio n, COVID-19 may no t be detected or may bedetected less predictably.ZACH T PERFORMED UNDER AN EMERGENCY USE AUTHORIZATION F ROM [facility] COMPREHENSIVE METABOLIC [id number] 06:07:00 Test Item Value Reference Range Interpretation Comments SODIUM (test code = NA) 142 mEq/L 135-145 N POTASSIUM (test code = K) 3.5 mEq/L 3.5-5.0 N CHLORIDE (test code = CL) 108 mEq/L 100-115 N CARBON DIOXIDE (test code = CO2) 25 mEq/L 22-31 N ANION GAP (test code = GAP) 12.70 10-20 N GLUCOSE (test code = GLU) 88 mg/dL 65-110 N BLOOD UREA NITROGEN (test code = 14 mg/dL 7-18 N BUN) GLOMERULAR FILTRATION RATE (test 86 ml/min >60 N code = GFR) CREATININE (test code = CREAT) 0.8 mg/dL 0.5-1.0 N TOTAL PROTEIN (test code = PROT) 6.0 gm/dL 6.3-8.2 L ALBUMIN (test code = ALB) 2.0 gm/dL 3.4-4.8 L CALCIUM (test code = CA) 8.1 mg/dL 8.4-10.2 L BILIRUBIN TOTAL (test code = 0.4 mg/dL 0.2-1.0 N BILT) SGOT/AST (test code = AST) 16 units/L 15-37 N SGPT/ALT (test code = ALT) 22 units/L 12-78 N ALKALINE PHOSPHATASE TOTAL (test 127 units/L 46-116 H code = ALKP) CBC W/AUTO [id number] 05:34:00 Test Item Value Reference Range Interpretation Comments WHITE BLOOD CELL (test code = WBC) 6.8 K/mm3 6.6-12.1 N RED BLOOD CELL (test code = RBC) 3.33 M/mm3 3.45-5.01 L HEMOGLOBIN (test code = HGB) 9.4 g/dL 10.7-13.9 L HEMATOCRIT (test code = HCT) 30.2 % 32.1-42.1 L MEAN CELL VOLUME (test code = MCV) 91 fL 84.1-94.8 N MEAN CELL HGB (test code = MCH) 28.2 pg 27-35 N MEAN CELL HGB CONCETRATION (test 31.1 gm/dL 32.2-34.1 L code = MCHC) RED CELL DISTRIBUTION WIDTH (test 14.2 % 12.4-16.5 N code = RDW) PLATELET COUNT (test code = PLT) 245 K/mm3 133-385 N MEAN PLATELET VOLUME (test code = 10.6 fl 9.1-12.7 N MPV) NEUTROPHIL % (test code = NT%) 59.9 % 56.5-79.4 N LYMPHOCYTE % (test code = LY%) 30.1 % 14.3-34.3 N MONOCYTE % (test code = MO%) 7.3 % 5.1-10.4 N EOSINOPHIL % (test code = EO%) 1.5 % 0.1-3.0 N BASOPHIL % (test code = BA%) 0.6 % 0.1-1.0 N NEUTROPHIL # (test code = NT#) 4.1 K/mm3 LYMPHOCYTE # (test code = LY#) 2.1 K/mm3 MONOCYTE # (test code = MO#) 0.5 K/mm3 EOSINOPHIL # (test code = EO#) 0.10 K/mm3 BASOPHIL # (test code = BA#) 0.0 K/mm3 RBC MORPHOLOGY REQUIRED (test code NORMAL NORMAL = RBCM) PLATELET MORPHOLOGY REQUIRED (test NORMAL NORMAL code = PLTMR) - CTA CHEST FOR [id number] 20:53:00 Patient Name: HEIDI MDARID Unit No: [id number] EXAMS: CPT CODE: [id number] [place] [address] CHEST CTA WITH CONTRAST WITH 3D RECONSTRUCTIONS. INDICATION: hypertension and shortness of breath. COMPARISON: None TECHNIQUE: Helical axial images were obtained from the level of the thoracicinlet to the diaphragm at [address] angiographic protocol with coronal and sagittal reconstructions. 3-dimensional reconstructed/reformatted images were also performed and reviewed.DOSE: CT imaging performed at this location utilizes radiation dose optimization technique which includes one or more of the followin) Automated exposure control; 2) Adjustment of the mA and/or kV a ccording to patient's size; 3) Use of iterative reconstruction techniques. DLP: 794 mGy-cm IV contrast: 100 mL Isovue-300 FINDINGS: MEDIASTINUM: Few mediastinal lymph nodes are seen in the AP window, right paratracheal, and subcarinal region measuring up to 1 cm short axis in the subcarinal region. Visualized portions of the trachea appear clear. Small hiatal hernia is present. HEART: Heart is upper limits of normal for size. No pericardial effusion. GREAT VESSELS: Thoracic aorta is normal in caliber without evidence for dissection flaps or flow- limiting stenosis. No filling defects identified in the main pulmonary arteries or proximal segmental branches bilaterally. LUNGS/PLEURA: The lungs are clear. Minimal pleural effusions are present, left greater than right. UPPER ABDOMEN: Contrast reflux into the hepatic veins is seen. CHEST WALL: No suspicious osseous abnormality. IMPRESSION: 1. No CT evidence for acute pulmonary embolus or thoracic aortic [facility] NAME: HEIDI MADRID Radiology Department PHYS: Ayden Mendoza [address] : 1990 AGE: 29 SEX:F [place] [address] LOC: [place] PHONE #: [phone] EXAM DATE: 11/26/2019STATUS: REG ER FAX #: [phone] RAD NO: Page 1 Signed Report 1 Patient Name: HEIDI MADRID Unit No: [id number] EXAMS: CPT CODE: [id number] [place] [address] (Continued) dissection. 2. Minimal bilateral pleural effusions. 3. Contrast reflux into the hepatic veins may suggest right heart failure/pulmonary hypertension. 4. Small hiatal hernia. SL: SG-H at 2052 Reported and signed by: Grayson Sr MD CC: Yvette Vasquez DO Techno logist: Annmarie Shore, CTDI: DLP: Trnscrbd D/ (2052) [email or web address] [facility] NAME: HEIDI MADRID Radiology Department PHYS: Ayden Mendoza [address] : 1990 AGE: 29 SEX: F [place] [address] LOC: [place] PHONE #: [phone] EXAM DATE: 11/26/2019 STATUS: REG ER FAX #: [phone] RAD NO: Page 2 Signed Report 1 Patient Name: HEIDI MADRID Unit No: [id number] EXAMS: CPT CODE: [id number] [place] [address] (Continued) Orig Print D/T: S: 11/26/2019 (2055) [facility] NAME: MARTA MADRIDLYN Radiology Department PHYS: Ayden Mendoza [address] : 1990 AGE: 29 SEX: F [place] [address] LOC: [place] PHONE #: [phone] EXAM DATE: 11/26/2019 STATUS: REG ER FAX #: [phone] RAD NO: Page 3 Signed Report 1- CT HEAD/BRAIN W/O [id number] 20:42:00 Patient Name: HEIDI MADRID Unit No: [id number] EXAMS: CPT CODE: [id number] CT HEAD/BRAIN W/O CONT 76836 CT HEAD WITHOUT CONTRAST INDICATION: Headache. COMPARISON: None. TECHNIQUE: Noncontrast CT headwas performed from skull base to vertex at 3 mm slice collimation. Coronal and sagittal reconstructions performed. DOSE: CT imaging performed at this location utilizes radiation dose optimization technique which includes one or more of the followin) Automated exposure control; 2) Adjustment of themA and/or kV according to patient's size; 3) Use of iterative reconstruction techniques. DLP: 801 mGy-cm FINDINGS: BRAIN PARENCHYMA AND VENTRICLES: Crandall- white matter differentiation is preserved. Ventricles are normal in size. No mass effect or midline shift. No extra-axial fluid collections. No acute intraparenchymal hemorrhage. Posterior fossa and midline structures appear normal. ORBITS, PARANASALSINUSES, AND MASTOIDS: Mild mucosal thickening is seen in the left maxillary sinus. Complete opacification right mastoid air cells present. Hypoplastic left mastoid air cells present. SKULL: Calvariumis intact. IMPRESSION: 1. No acute intracranial findings. 2. Mild left maxillary chronic sinusitis. 3. Complete right mastoid opacification/effusion. SL: MANUEL at 2042 Reported and signed by: Grayson Sr MD [facility] NAME: HEIDI MADRID Radiology Department PHYS: Ayden Mendoza [id number] Rylie : [birth year] AGE: 29 SEX: F [place], [place] [address] LOC: LORNE PHONE #: [phone] EXAM DATE: 11/26/2019 STATUS: REG ER FAX #: [phone] RAD NO: Page 1 Signed Report 1 Patient Name: HEIDI MADRID Unit No: [id number] EXAMS: CPT CODE: [id number] CT HEAD/BRAIN W/O CONT 49687 (Continued)CC: Yvette Vasquez DO Technologist: Annmarie Shore, CTDI: DLP: Trnscrbd D/ (2 042) [email or web address] [facility] NAME: HEIDI MADRID Radiology Department PHYS: Ayden Mendoza [address] : 1990 AGE: 29 SEX: F [place] [address] LOC: SampsonERS PHONE #: [phone] EXAM DATE: 11/26/2019 STATUS: REG ER FAX #: [phone] RAD NO: Page 2 Signed Report 1 Patient Name: HEIDI MADRID Unit No: [id number] EXAMS: CPT CODE: [id number] CT HEAD/BRAIN W/O CONT 07607 (Continued) Orig Print D/T: S: 11/26/2019 (2044) [facility] NAME: MARTA MADRIDLYN Radiology Department PHYS: Ayden Mendoza [address] : 1990 AGE: 29 SEX: F [place] [address] LOC: Arcadio.ERS PHONE #: [phone] EXAM DATE: 11/26/2019 STATUS: REG ER FAX #: [phone] RAD NO: Page 3 Signed Report 1B-TYPE NATRIURETIC [id number] 20:41:00 Test Item Value Reference Range Interpretation Comments B-TYPE NATRIURETIC PEPTIDE (test 330.26 pg/mL 0-100 H code = BNP) [id number] 20:32:00 Test Item Value Reference Range Interpretation Comments MAGNESIUM (test code = MAG) 1.8 mg/dL 1.8-2.4 N Comments to Ultrasound Technol: Clean CatchSpecimen Comment: Clean CatchTROPONIN-I 2019-11-26 20:32:00 Test Item Value Reference Range Interpretation Comments TROPONIN-I (test code = TROPI) 0.027 ng/mL <0.056 N Comments to Ultrasound Technol: Clean CatchSpecimen Comment: Clean CatchD-DIMER QUANT 2019-11-26 20:22:00 Test Item Value Reference Range Interpretation Comments D-DIMER QUANT 802 ng/mLDDU <255 H Reference Ran ge in (test code = : <570 DDIMER) ng/ml A positive test d oes not provide a defin itive diagnosis ofDVT and indicates the n eed for follow up clini irving studies. The pr edictive value of a nega tive test is 98% for rulingout DVT. PROTHROMBIN [id number] 19:58:00 Test Item Value Reference Range Interpretation Comments PROTHROMBIN TIME PATIENT (test code 11.6 secs 10.4-12.4 N = PTP) THROMBOPLASTIN TIME [id number] 19:58:00 Test Item Value Reference Range Interpretation Comments THROMBOPLASTIN TIME PARTIAL (test 30.5 secs 22-38 N code = PTT) [id number] 19:58:00 Test Item Value Reference Range Interpretation Comments FIBRINOGEN (test code = FIB) 616 mg/dL 309-518 H PROTHROMBIN [id number] 19:36:00 Test Item Value Reference Range Interpretation Comments PROTHROMBIN TIME PATIENT (test code 11.6 secs 10.4-12.4 N = PTP) THROMBOPLASTIN TIME [id number] 19:36:00 Test Item Value Reference Range Interpretation Comments THROMBOPLASTIN TIME PARTIAL (test 30.5 secs 22-38 N code = PTT) [id number] 19:36:00 Test Item Value Reference Range Interpretation Comments FIBRINOGEN (test code = FIB) mg/dL 309-518 COMPREHENSIVE METABOLIC [id number] 19:35:00 Test Item Value Reference Range Interpretation Comments SODIUM (test code = NA) 141 mEq/L 135-145 N POTASSIUM (test code = K) 4.0 mEq/L 3.5-5.0 N CHLORIDE (test code = CL) 107 mEq/L 100-115 N CARBON DIOXIDE (test code = CO2) 25 mEq/L 22-31 N ANION GAP (test code = GAP) 12.90 10-20 N GLUCOSE (test code = GLU) 79 mg/dL 65-110 N BLOOD UREA NITROGEN (test code = 17 mg/dL 7-18 N BUN) GLOMERULAR FILTRATION RATE (test 75 ml/min >60 N code = GFR) CREATININE (test code = CREAT) 0.9 mg/dL 0.5-1.0 N TOTAL PROTEIN (test code = PROT) 6.5 gm/dL 6.3-8.2 N ALBUMIN (test code = ALB) 2.1 gm/dL 3.4-4.8 L CALCIUM (test code = CA) 8.3 mg/dL 8.4-10.2 L BILIRUBIN TOTAL (test code = 0.3 mg/dL 0.2-1.0 N BILT) SGOT/AST (test code = AST) 21 units/L 15-37 N SGPT/ALT (test code = ALT) 24 units/L 12-78 N ALKALINE PHOSPHATASE TOTAL (test 142 units/L 46-116 H code = ALKP) URIC [id number] 19:35:00 Test Item Value Reference Range Interpretation Comments URIC ACID (test code = URIC) 5.4 mg/dL 2.6-6.0 N LACTIC DEHYDROGENASE(LDH)2019-11-26 19:35:00 Test Item Value Reference Range Interpretation Comments LACTIC DEHYDROGENASE(LDH) (test 196 units/L 81-234 code = LDH) UA RFLX MICR CULT IF [id number] 19:20:00 Test Item Value Reference Range Interpretation Comments UA COLOR (test code = COLU) YELLOW YELLOW UA APPEARANCE (test code = CLEAR CLEAR APPU) UA GLUCOSE DIPSTICK (test code NEGATIVE NEG = DGLUU) UA BILIRUBIN DIPSTICK (test NEGATIVE NEG code = BILU) UA KETONE DIPSTICK (test code NEGATIVE NEG = KETU) UA SPECIFIC GRAVITY (test code 1.016 1.001-1.035 N = SGU) UA BLOOD DIPSTICK (test code = 3+ NEG A KIM) UA PH DIPSTICK (test code = 5.0 5-9 DEIRDRE) UA PROTEIN DIPSTICK (test code NEGATIVE NEG = PROU) UA UROBILINIOGEN DIPSTICK NEGATIVE mg/dL NEG (test code = URO) UA NITRITE DIPSTICK (test code NEG NEG = KENTON) UA LEUKOCYTE ESTERASE DIPSTICK 2+ NEG A (test code = LEUU) UA WBC (test code = WBCU) 31-40 #/hpf NONE SEEN A UA RBC (test code = RBCU) 21-30 #/hpf NONE SEEN A UA EPITHELIAL CELLS (test code RARE #/HPF RARE-FEW = EPIU) UA BACTERIA (test code = BACU) NEGATIVE /HPF RARE-FEW UA MUCUS (test code = MUCU) RARE NONE SEEN Indication for culture: Dysuria/FrequencyCBC W/AUTO [id number] 19:15:00 Test Item Value Reference Range Interpretation Comments WHITE BLOOD CELL (test code = WBC) 8.8 K/mm3 6.6-12.1 N RED BLOOD CELL (test code = RBC) 3.50 M/mm3 3.45-5.01 N HEMOGLOBIN (test code = HGB) 9.8 g/dL 10.7-13.9 L HEMATOCRIT (test code = HCT) 32.1 % 32.1-42.1 N MEAN CELL VOLUME (test code = MCV) 92 fL 84.1-94.8 N MEAN CELL HGB (test code = MCH) 28.0 pg 27-35 N MEAN CELL HGB CONCETRATION (test 30.5 gm/dL 32.2-34.1 L code = MCHC) RED CELL DISTRIBUTION WIDTH (test 14.4 % 12.4-16.5 N code = RDW) PLATELET COUNT (test code = PLT) 276 K/mm3 133-385 N MEAN PLATELET VOLUME (test code = 11.2 fl 9.1-12.7 N MPV) NEUTROPHIL % (test code = NT%) 62.9 % 56.5-79.4 N LYMPHOCYTE % (test code = LY%) 26.9 % 14.3-34.3 N MONOCYTE % (test code = MO%) 7.0 % 5.1-10.4 N EOSINOPHIL % (test code = EO%) 2.0 % 0.1-3.0 N BASOPHIL % (test code = BA%) 0.6 % 0.1-1.0 N NEUTROPHIL # (test code = NT#) 5.5 K/mm3 LYMPHOCYTE # (test code = LY#) 2.4 K/mm3 MONOCYTE # (test code = MO#) 0.6 K/mm3 EOSINOPHIL # (test code = EO#) 0.18 K/mm3 BASOPHIL # (test code = BA#) 0.1 K/mm3 RBC MORPHOLOGY REQUIRED (test code NORMAL NORMAL = RBCM) PLATELET MORPHOLOGY REQUIRED (test NORMAL NORMAL code = PLTMR) HGB [id number] 08:16:00 Test Item Value Reference Range Interpretation Comments HEMOGLOBIN (test code = HGB) 9.5 g/dL 10.7-13.9 L HEMATOCRIT (test code = HCT) 31.4 % 32.1-42.1 L PIH [id number] 18:05:00 Test Item Value Reference Range Interpretation Comments CREATININE (test code = CREAT) 0.8 mg/dL 0.5-1.0 N SGOT/AST (test code = AST) 20 units/L 15-37 N SGPT/ALT (test code = ALT) 16 units/L 12-78 N LACTIC DEHYDROGENASE(LDH) (test 278 units/L 81-234 H code = LDH) : *Comments to Ultrasound Technol: specimen in labURIC [id number] 18:05:00 Test Item Value Reference Range Interpretation Comments URIC ACID (test code = URIC) 4.4 mg/dL 2.6-6.0 N : *Comments to Ultrasound Technol: specimen in labURINALYSIS W/O [id number] 17:25:00 Test Item Value Reference Range Interpretation Comments UA GLUCOSE DIPSTICK (test code = NEGATIVE NEGATIVE DGLUU) UA KETONE DIPSTICK (test code = NEGATIVE NEGATIVE KETU) UA PROTEIN DIPSTICK (test code = NEGATIVE NEGATIVE PROU) IS NURSE PERFORMING TEST? NNovel Coronavirus 03:38:00 Test Item Value Reference Range Interpretation Comments Novel Coronavirus 2018 Inhouse (test NEGATIVE Not Detect. code = [id number]) Testing Criteria: OtherOther: C/SNovel Coronavirus 2019 [id number] 03:37:00 Test Item Value Reference Range Interpretation Comments Novel Coronavirus 2018 Inhouse (test NEGATIVE Not Detect. code = [id number]) Testing Criteria: OtherOther: C/SAG HEPATITIS B [id number] 12:56:00 Test Item Value Reference Range Interpretation Comments AG HEPATITIS B SURFACE (test code NONREACTIVE NONREACTIVE = HBSAG) IS CONSENT FORM SIGNED FOR HIV TESTING? YAB HEPATITIS C [id number] 12:56:00 Test Item Value Reference Range Interpretation Comments AB HEPATITIS C (test code = NONREACTIVE NONREACTIVE HCVAB) SIGNAL TO CUTOFF (test code = 0.22 <0.80 N CUTOFF) IS CONSENT FORM SIGNED FOR HIV TESTING? YAB [id number] 12:56:00 Test Item Value Reference Range Interpretation Comments AB TREPONEMA (test code = TREPAB) NONREACTIVE NONREACTIVE IS CONSENT FORM SIGNED FOR HIV TESTING? YAB HIV 1 12:56:00 Test Item Value Reference Range Interpretation Comments AB HIV 1 2 (test NONREACTIVE NONREACTIVE [facility] code = [id number]) 4th Gen HIV Ag/Ab Combo Screen IS CONSENT FORM SIGNED FOR HIV TESTING? YAG HEPATITIS B [id number] 12:34:00 Test Item Value Reference Range Interpretation Comments AG HEPATITIS B SURFACE (test code NONREACTIVE NONREACTIVE = HBSAG) IS CONSENT FORM SIGNED FOR HIV TESTING? YAB HEPATITIS C [id number] 12:34:00 Test Item Value Reference Range Interpretation Comments AB HEPATITIS C (test code = HCVAB) NONREACTIVE SIGNAL TO CUTOFF (test code = CUTOFF) <0.80 IS CONSENT FORM SIGNED FOR HIV TESTING? YAB [id number] 12:34:00 Test Item Value Reference Range Interpretation Comments AB TREPONEMA (test code = TREPAB) NONREACTIVE NONREACTIVE IS CONSENT FORM SIGNED FOR HIV TESTING? YAB HIV 1 12:34:00 Test Item Value Reference Range Interpretation Comments AB HIV 1 2 (test code = [id number]) NONREACTIVE IS CONSENT FORM SIGNED FOR HIV TESTING? YCBC W/AUTO [id number] 11:35:00 Test Item Value Reference Range Interpretation Comments WHITE BLOOD CELL (test code = WBC) 12.4 K/mm3 6.6-12.1 H RED BLOOD CELL (test code = RBC) 4.34 M/mm3 3.45-5.01 N HEMOGLOBIN (test code = HGB) 12.3 g/dL 10.7-13.9 N HEMATOCRIT (test code = HCT) 39.1 % 32.1-42.1 N MEAN CELL VOLUME (test code = MCV) 90 fL 84.1-94.8 N MEAN CELL HGB (test code = MCH) 28.3 pg 27-35 N MEAN CELL HGB CONCETRATION (test 31.5 gm/dL 32.2-34.1 L code = MCHC) RED CELL DISTRIBUTION WIDTH (test 13.2 % 12.4-16.5 N code = RDW) PLATELET COUNT (test code = PLT) 220 K/mm3 133-385 N MEAN PLATELET VOLUME (test code = 12.0 fl 9.1-12.7 N MPV) NEUTROPHIL % (test code = NT%) 65.5 % 56.5-79.4 N LYMPHOCYTE % (test code = LY%) 25.1 % 14.3-34.3 N MONOCYTE % (test code = MO%) 7.8 % 5.1-10.4 N EOSINOPHIL % (test code = EO%) 0.6 % 0.1-3.0 N BASOPHIL % (test code = BA%) 0.4 % 0.1-1.0 N NEUTROPHIL # (test code = NT#) 8.1 K/mm3 LYMPHOCYTE # (test code = LY#) 3.1 K/mm3 MONOCYTE # (test code = MO#) 1.0 K/mm3 EOSINOPHIL # (test code = EO#) 0.08 K/mm3 BASOPHIL # (test code = BA#) 0.1 K/mm3 RBC MORPHOLOGY REQUIRED (test code NORMAL NORMAL = RBCM) PLATELET MORPHOLOGY REQUIRED (test NORMAL NORMAL code = PLTMR) URINALYSIS W/O [id number] 11:31:00 Test Item Value Reference Range Interpretation Comments UA GLUCOSE DIPSTICK (test code = NEGATIVE NEGATIVE DGLUU) UA KETONE DIPSTICK (test code = NEGATIVE NEGATIVE KETU) UA PROTEIN DIPSTICK (test code = TRACE NEGATIVE A PROU) IS NURSE PERFORMING TEST? YESSI CREATININE CLEARANCE [id number] 18:59:00 Test Item Value Reference Range Interpretation Comments CREATININE CLEARANCE RESULT (test 140 ml/min 70-120 H code = CREATCLR) CREATININE (test code = CREAT) 0.7 mg/dL 0.5-1.0 N UR CREATININE RANDOM (test code = 118.0 mg/dL CREATU) UR VOLUME (test code = VOL) 1200 ML UR PROTEIN [id number] 18:59:00 Test Item Value Reference Range Interpretation Comments UR PROTEIN RANDOM 12.7 mg/dL (test code = PROTU) UR PROTEIN 24HR (test 152 mg/24HR 20-150 H Units for 24 HR Urine code = CWJL22D) Protein have changed: New Units = MG/ 24HR COMPREHENSIVE METABOLIC [id number] 16:46:00 Test Item Value Reference Range Interpretation Comments SODIUM (test code = NA) 139 mEq/L 135-145 N POTASSIUM (test code = K) 4.2 mEq/L 3.5-5.0 N CHLORIDE (test code = CL) 106 mEq/L 100-115 N CARBON DIOXIDE (test code = CO2) 23 mEq/L 22-31 N ANION GAP (test code = GAP) 14.60 10-20 N GLUCOSE (test code = GLU) 101 mg/dL 65-110 N BLOOD UREA NITROGEN (test code = 8 mg/dL 7-18 N BUN) GLOMERULAR FILTRATION RATE (test 100 ml/min >60 N code = GFR) CREATININE (test code = CREAT) 0.7 mg/dL 0.5-1.0 N TOTAL PROTEIN (test code = PROT) 6.2 gm/dL 6.3-8.2 L ALBUMIN (test code = ALB) 2.3 gm/dL 3.4-4.8 L CALCIUM (test code = CA) 8.4 mg/dL 8.4-10.2 N BILIRUBIN TOTAL (test code = 0.3 mg/dL 0.2-1.0 N BILT) SGOT/AST (test code = AST) 14 units/L 15-37 L SGPT/ALT (test code = ALT) 17 units/L 12-78 N ALKALINE PHOSPHATASE TOTAL (test 149 units/L 46-116 H code = ALKP) UR PROTEIN/CREATININE [id number] 16:41:00 Test Item Value Reference Range Interpretation Comments UR PROTEIN RANDOM (test code = 30.4 mg/dL PROTU) UR CREATININE RANDOM (test 255.9 mg/dL code = CREATU) PROTEIN/CREATININE RATIO (test 110.0 mg/gcrea <200 code = P/CRATIO) - US PREG UT [id number] 16:37:00 Patient Name: HEIDI MADRID Unit No: [id number] EXAMS: CPT CODE: [id number] US PREG UT TRANSVAGINAL [address] [facility] [address] [place], [place] [address] OBSTETRICAL BIOPHYSICAL ULTRASOUND REPORT Pat. Name: HEIDI MADRID Pat. No: [id number] Study Date: 11/03/2019 3:49pm , Age: 14 1990, 29 Pregnancies: 3, Para 0 LMP: 03/06/2019 GA by LMP: 34w4d GA by 1st: 34w4d GA by US: 33w4d GA Selected: 34w4d (From First S) THERESA: 12/11/2019 Referring MD: Yvette Vasquez Control Systems Eng: Kimmy Rodriguez RDMS CPT4: USPRUTTRVG Admitting MD: Yvette Vasquez Hist/Ind: 2ND SCAN ELEVATED BPS MEASUREMENTS AGE GROWTH EVALUATION Measurement GA Range Srce %for GA Ratios ----- ---- ------- BPD 8.5 cm 34w5d (31w5d- 37w5d) Hadl BPD 52% FL/BPD 0.75 (0.71 - 0.87) HC 31.8 cm 35w2d (39i0u-66x3d) Hadl HC 61% FL/AC 0.22 (0.20 - 0.24) APD 9.0 cm APD HC/AC 1.11 (0.94 - 1.13) TAD 9.3 cm TAD CI 0.78 (0.70 - 0.86) AC 28.8 cm 32w6d (92n3q-71q2h) Hadl AC 24% FL 6.4 cm 32w6d (33k6h-87d7c) Hadl FL23% HL 5.5 cm 32w0d (29v1f-22k5p) Ayden HL 7% GA for sonogram 33w4d (66r7y-37t6w) Weight Estimate: based on (BPD,HC,AC,FL) Hadlock Weight: 2161 gm (0631-1225) Hadlo : 4lbs, 12oz Normal: 2337 gm (5811-5545) Brenn Wt% 37% for 34.6 wks Cervical Length: 2.3 cm Heart Rate: 144 bpm Amniotic FluidIndex: 26.6cm (08.0-24.9)* Q1: 6.2cm Q2: 8.7cm Q3: 5.3cm Q4: 6.4cm Biophysical Profile: 03/20 Breathin Tone: 2 Movement: 2 AFV: 2 MATERNAL ANATOMY Ovaries LxHxW (cm) Right 2.8 x 1.0 x 2.1 Vol: 3.1cc Left 3.4 x 1.7 x 1.0 Vol: 3.0cc CLINICAL SUMMARY Type of Gestation: Moise [facility] NAME: Verito MADRID Radiology Department PHYS: CHRIS Pfeiffer Vasquez,Yvette [address] : 1990 AGE: 29 SEX: F [place], [place] [address] LOC: F.3052 A PHONE #: [phone] EXAM DATE: 11/03/2019 STATUS: ADM IN FAX #: [phone] RAD NO: Page 1 Signed Report (CONTINUED) Patient Name: HEIDI MADRID Unit No: [id number] EXAMS: CPT CODE: [id number] [facility] TRANSVAGINAL [address] (Continued) Intrauterine in breech presentation. size is appropriate for gestational age. growth: Consistent with normal growth motion and organs seen: heart motion seen Placental location: Posterior Fundal Placental maturity : Grade 2 There is no evidence of placenta previa. Amniotic fluid volume is elevated Uterus and adnexa: No significant abnormality is seen. Amanda Paz M.D. Electronic Signature 11/03/2019 04:37pm Revised " Chaparrita felix signed by Amanda Paz MD Reported and signed by: Amanda Paz MD CC: Yvette Vasquez DO Technologist: Kimmy Rodriguez RDMS Probe: [id number] Trnscrbd D/ (1637) Anup Advanced ToSigned Dt/Tm/User: 11/04/19 (1150) [email or web address] Orig Print D/T: S: 11/04/2019 (1150) [facility] NAME: HEIDI MADRID Radiology Department PHYS: CHRIS Pfeiffer ChristopherYvette [address] : 1990 AGE: 29 SEX: F [place], [place] [address] LOC: F.3051 A PHONE #: [phone] EXAM DATE: 11/03/2019 STATUS: ADM IN FAX #: [phone] RAD NO: Page 2 Signed ReportPatient Name: HEIDI MADRID Unit No: [id number] EXAMS: CPT CODE: [id number] US PREG UT TRANSVAGINAL [address] (Continued) [facility] NAME: HEIDI MADRID Radiology Department PHYS: CHRIS Yvette Vasquez [address] : 1990 AGE: 29 SEX: F [place] [address] LOC: F.3052 A PHONE #: [phone] EXAM DATE: 11/03/2019 STATUS: ADM IN FAX #:[phone] RAD NO: Page 3 Signed Report- US FLW UP 2019-11-03 16:37:00 Patient Name: HEIDI MADRID Unit No: [id number] EXAMS: CPT CODE: [id number] [place] [id number] [place], [place] [address] OBSTETRICAL BIOPHYSICAL ULTRASOUNDREPORT Pat. Name: HEIDI MADRID Pat. No: [id number] Study Date: 11/03/2019 3:49pm , Age: 14 1990, 29 Pregnancies: 3, Para 0 LMP: 03/06/2019 GA by LMP: 34w4d GA by 1st: 34w4d GA by US: 33w4d GA Selected: 34w4d (From First S) THERESA: 12/11/2019 Referring MD: Christopher Crawford Control Systems Eng: Kimmy Rodriguez RDMS CPT4: USPREGFU Admitting MD: YVETTE VASQUEZ Hist/Ind: 2ND SCAN ELEVATED BPS MEASUREMENTS AGE GROWTH EVALUATION Measurement GA Range Srce %for GA Ratios ----- ---- ------- BPD 8.5 cm 34w5d (99m5v-51y6g) Hadl BPD 52% FL/BPD 0.75 (0.71 - 0.87) HC 31.8 cm 35w2d (45m2h-44b6m)Hadl HC 61% FL/AC 0.22 (0.20 - 0.24) APD 9.0 cm APD HC/AC 1.11 (0.94 - 1.13) TAD 9.3 cm TAD CI 0.78(0.70 - 0.86) AC 28.8 cm 32w6d (29w6d- 35w6d) Hadl AC 24% FL 6.4 cm 32w6d (24b6e-96v6t) Hadl FL 23% HL 5.5 cm 32w0d (49c1m-26p6f) Ayden HL 7% GA for sonogram 33w4d (21d6z-57l6l) Weight Estimate: based on (BPD,HC,AC,FL) Hadlock Weight: 2161 gm (7861-0518) Hadlo : 4lbs, 12oz Normal: 2337 gm (5604-9486) Brenn Wt% 37% for 34.6 wks Cervical Length: 2.3 cm Heart Rate: 144 bpm Amniotic Fluid Index: 26.6cm (08.0- 24.9)* Q1: 6.2cm Q2: 8.7cm Q3: 5.3cm Q4: 6.4cm Biophysical Profile: 03/20 Breathin Tone: 2 Movement: 2 AFV: 2 MATERNAL ANATOMY Ovaries LxHxW (cm) Right 2.8 x 1.0 x 2.1 Vol: 3.1cc Left 3.4 x 1.7 x 1.0 Vol: 3.0cc CLINICAL SUMMARY Type of Gestation: Moise [facility] NAME: HEIDI MADRID Radiology Department PHYS: Yvette Hernandez DO [address] : 1990 AGE: 29 SEX: Ar[place], [place] [address] LOC: SampsonROSIE PHONE #: [phone] EXAM DATE: 11/03/2019 STATUS: REG ER FAX #: [phone] RAD NO: Page 1 Signed Report (CONTINUED) Patient Name: HEIDI MADRID Unit No: [id number] EXAMS: CPT CODE: [id number] US [place]W [place] [address] (Continued) Intrauterine in breech presentation. size is appropriate for gestational age. Fetalgrowth: Consistent with normal growth motion and organs seen: heart motion seen Placental location: Posterior Fundal Placental maturity : Grade 2 There is no evidence of placenta previa. Amniotic fluid volume is elevated Uterus and adnexa: No significant abnormality is seen. Amanda Paz M.D. Electronic Signature 11/03/2019 04:37pm at 1637 Reported and signed by: Amanda Paz MD CC: Yvette Vasquez DO Technologist: Kimmy Rodriguez RDMS Probe: Trnscrbd D/ (1637) [email or web address] Orig Print D/T: S: 11/03/2019 (1640) [facility] NAME: HEIDI MADRID Radiology Department PHYS: Yvette Hernandez DO [address] : 1990 AGE: 29 SEX: F [place] [address] LOC: Arcadio.ROSIE PHONE #: [phone] EXAM DATE: 11/03/2019 STATUS: REG ER FAX #: [phone] RAD NO: Page 2 Signed Report Patient Name: HEIDI MADRID Unit No: [id number] EXAMS: CPT CODE: [id number] [place] [address] (Continued) [facility] NAME: HEIDI MADRID Radiology Department PHYS: Yvette Hernandez DO [address] : 1990AGE: 29 SEX: F [place] [address] LOC: Arcad[place].ROSIE PHONE #: [phone] EXAM DATE: 11/03/2019 STATUS: REG ER FAX #: [phone] RAD NO: Page 3 Signed Report- US FET BIO PH SC W/O NST 2019-11-03 16:37:00 Patient Name: HEIDI MADRID Unit No: [id number] EXAMS: CPT CODE: [id number] US FET BIO PH SC W/O NST [address] [facility] [address] [place], [place] [address] OBSTETRICAL BIOPHYSICAL ULTRASOUND REPORT Pat. Name: HEIDI MADRID Pat. No: [id number] Study Date: 11/03/2019 3:49pm , Age: 14 1990, 29 Pregnancies: 3, Para 0 LMP: 03/06/2019 GA by LMP: 34w4d GA by 1st: 34w4d GA by US: 33w4d GA Selected: 34w4d (From First S) THERESA: 12/11/2019 Referring MD: Yvette Vasquez Control Systems Eng: Kimmy Rodriguez RDMS C PT4: [id number] Admitting MD: Yvette Vasquez Hist/Ind: 2ND SCAN ELEVATED BPS MEASUREMENTS AGE GROWTH EVALUATION Measurement GA Range Srce %for GA Ratios ----- ---- ------- BPD 8.5 cm 34w5d (10l2g-51n8p) Hadl BPD 52% FL/BPD 0.75 (0.71 - 0.87) HC 31.8 cm 35w2d (48d0a-41n1t) Hadl HC 61% FL/AC 0.22 (0.20 - 0.24) APD 9.0 cm APD HC/AC 1.11 (0.94 - 1.13) TAD 9.3 cm TAD CI 0.78 (0.70 - 0.86) AC 28.8 cm 32w6d (29w6d- 35w6d) Hadl AC 24% FL 6.4 cm 32w6d (70w7s-44f5z) Hadl FL 23% HL 5.5 cm 32w0d (76v7z-26v6v) Ayden HL 7% GA for sonogram 33w4d (57p0b-41g0i) Weight Estima te: based on (BPD,HC,AC,FL) Hadlock Weight: 2161 gm (1930-2488) Hadlo : 4lbs, 12oz Normal: 2337 gm (7797-3675) Brenn Wt% 37% for 34.6 wks Cervical Length: 2.3 cm Heart Rate: 144 bpm Amniotic Fluid Index: 26.6cm (08.0-24.9)* Q1: 6.2cm Q2: 8.7cm Q3: 5.3cm Q4: 6.4cm Biophysical Profile: 03/20 Breathin Tone: 2 Movement: 2 AFV: 2 MATERNAL ANATOMY Ovaries LxHxW (cm) Right 2.8 x 1.0 x 2.1 Vol: 3.1cc Left 3.4 x 1.7 x 1.0 Vol: 3.0cc CLINICAL SUMMARY Type of Gestation: Moise [facility] NAME: HEIDI MADRID JACQUELYN Radiology Department PHYS: Yvette Hernandez DO [address] : 1990 AGE: 29 SEX: F [place], [place] [address] LOC: [id number] A PHONE #: [phone] EXAM DATE: 11/03/2019 STATUS: ADM IN FAX #: [phone] RAD NO: Page 1 Signed Report (CONTINUED) Patient N ra: HEIDI MADRID Unit No: [id number] EXAMS: CPT CODE: [id number] US FET BIO PH SC W/O NST 12874 (Continued) Intrauterine in breech presentation. size is appropriate for gestational age. growth: Consistent with normal growth motion and organs seen: heart mo tion seen Placental location: Posterior Fundal Placental maturity : Grade 2 There is no evidence of placenta previa. Amniotic fluid volume is elevated Uterus and adnexa: No significant abnormality is seen. Amanda Paz M.D. Electronic Signature 11/03/2019 04:37pm Revised " Manually signed by Amanda Paz MD Reported and signed by: Amanda Paz MD CC: Yvette Vasquez DOTechnologist: Kimmy Rodriguez RDMS Probe: Trnscrbd D/ (5120) Anup Advanced To Signed Dt/Tm/User: 11/04/19 (5983) RUT Orig Print D/T: S: 11/04/2019 (8090) [facility] NAME: BRITTANY MADRIDELISSA VALLADARES Radiology Department PHYS: Yvette Hernandez DO [address] : 1990 AGE: 29 SEX: F [place], [place] [address] LOC: F.3052 A PHONE #: [phone] EXAM DATE: 11/03/2019 STATUS: ADM IN FAX #: [phone] RAD NO: Page 2 Signed Report Patient Name: HEIID MADRID Unit No: [id number] EXAMS: CPT CODE: [id number] [facility] BIO PH SC W/O NST 67477 (Continued) [facility] NAME: HEIDI MADRID Radiology Department PHYS: STEPHANIE.Warren Yvette Vasquez DO [address] : 1990 AGE: 29 SEX: F [place], [place] [address] LOC: F.3052 A PHONE #: [phone] EXAM DATE: 11/03/2019 STATUS: ADM IN FAX #: [phone] RAD NO: Page 3 Signed ReportCBC W/AUTO [id number] 16:19:00 Test Item Value Reference Range Interpretation Comments WHITE BLOOD CELL (test code = WBC) 12.4 K/mm3 6.6-12.1 H RED BLOOD CELL (test code = RBC) 4.29 M/mm3 3.45-5.01 N HEMOGLOBIN (test code = HGB) 12.1 g/dL 10.7-13.9 N HEMATOCRIT (test code = HCT) 39.0 % 32.1-42.1 N MEAN CELL VOLUME (test code = MCV) 91 fL 84.1-94.8 N MEAN CELL HGB (test code = MCH) 28.2 pg 27-35 N MEAN CELL HGB CONCETRATION (test 31.0 gm/dL 32.2-34.1 L code = MCHC) RED CELL DISTRIBUTION WIDTH (test 13.2 % 12.4-16.5 N code = RDW) PLATELET COUNT (test code = PLT) 247 K/mm3 133-385 N MEAN PLATELET VOLUME (test code = 12.3 fl 9.1-12.7 N MPV) NEUTROPHIL % (test code = NT%) 70.5 % 56.5-79.4 N LYMPHOCYTE % (test code = LY%) 22.1 % 14.3-34.3 N MONOCYTE % (test code = MO%) 6.1 % 5.1-10.4 N EOSINOPHIL % (test code = EO%) 0.4 % 0.1-3.0 N BASOPHIL % (test code = BA%) 0.3 % 0.1-1.0 N NEUTROPHIL # (test code = NT#) 8.7 K/mm3 LYMPHOCYTE # (test code = LY#) 2.7 K/mm3 MONOCYTE # (test code = MO#) 0.8 K/mm3 EOSINOPHIL # (test code = EO#) 0.05 K/mm3 BASOPHIL # (test code = BA#) 0.0 K/mm3 RBC MORPHOLOGY REQUIRED (test code NORMAL NORMAL = RBCM) PLATELET MORPHOLOGY REQUIRED (test NORMAL NORMAL code = PLTMR) - US PREG AFTER [id number] 11:07:00 Patient Name: HEIDI MADRID Unit No: [id number] EXAMS: CPT CODE: [id number] US PREG AFTER TRI [id number] [facility] [address], [place] [address] OBSTETRICAL ULTRASOUND REPORT -- [facility]. [facility] No: [id number] Study Date: 08/26/2019 9:56am , Age: 14 1990, 29 Pregnancies: 3, Para 0 LMP: 03/06/2019 GA by LMP: 24w5d GA by US: 24w1d GA Selected: 24w5d (LMP) THERESA: 12/11/2019 Referring MD: Christopher Crawford Control Systems Eng: Ivis Canchola RDMS, RVT CPT4: [id number] Admitting MD: YVETTE VASQUEZ Hist/Ind: ANATOMY SCAN 1 MEASUREMENTS AGE GROWTH EVALUATION Measurement GA Range Srce %for GA Ratios ----- ---- ------- BPD 6.0 cm 24w5d (17v6h-80i1m) Hadl BPD 49% FL/BPD 0.73 (0.71 - 0.87) HC 22.3 cm 24w1d (42a8v-28y8x) Hadl HC 38% FL/AC 0.22 (0.20 - 0.24)APD 6.2 cm APD HC/AC 1.11 (1.02 - 1.21) TAD 6.7 cm TAD CI 0.79 (0.70 - 0.86) AC 20.0 cm 24w3d (22w2d- 26w5d) Hadl AC 45% FL 4.4 cm 24w1d (10p8h-16d5t) Hadl FL 39% HL 4.1 cm 24w5d (79k4k-21e5f) Ayden HL 50% GA for sonogram 24w1d (48v8y-75g8e) Weight Estimate: based on (BPD,HC,AC,FL) Hadlock Weight:718 gm (613-823) Hadlock : 1lbs, 9oz Normal: 710 gm (469-1150) Carla Wt% 51% for 24.7 wks Cervical Length: 4.1 cm Heart Rate: 147.2185 bpm MATERNAL ANATOMY Ovaries LxHxW (cm) Right 2.5 x 1.2 x 2.1 Vol: 3.3cc Left 2.0 x 1.4 x 2.0 Vol: 2.9cc Desc: . ----- CLINICAL SUMMARY Type of Gestation: Moise Intrauterine in transverse presentation. size is appropriate for gestational age. motion and organs seen: heart motion seen somatic activity observed body and limb movements seen [facility] NAME: HEIDI MADRID Radiology Department PHYS: Yvette Hernandez DO [address] : 1990 AGE: 29 SEX: F [place], [place] [address] LOC: SampsonRAD PHONE #: [phone] EXAM DATE: 08/26/2019 STATUS: REG CLI FAX #: [phone] RAD NO: Page1 Signed Report (CONTINUED) Patient Name: HEIDI MADRID Unit No: [id number] EXAMS: CPT CODE: [id number] US PREG AFTER TRI 08108 (Continued) Four chamber heart observed Left ventricular outflow tract (LVOT) seen Right ventricular outflow tract (RVOT) seen Normal intracranial anatomy seenUmbilical cord insertion in fetus seen stomach, Renal Fossa, Bladder and Spine seen Three vessel umbilical cord noted abnormalities observed: None seen at this exam Placental location: Posterior Placental maturity : Grade 1 There is no evidence of placenta previa. Amniotic fluid volume is normal. Uterus and adnexa: No significant abnormality is seen. Thank you for allowing us to participate in the care of this patient. Israel Spencer M.D. Electronic Signature 08/26/201911:07am at 1107 Reported and signed by: Israel Spencer MD CC: Yvette Vasquez DO Technologist: Ivis Canchola RDMS, RVT Probe: Trnscrbd D/ (1107) [id number] Orig Print D/T: S: 08/26/2019 (1107) [facility] NAME: HEIDI MADRID Radiology Department PHYS: STEPHANIEHilarioWarren Yvette Vasquez DO [address] : 1990 AGE: 29 SEX: F [place] [address] LOC: F.RAD PHONE #: [phone] EXAM DATE: 08/26/2019 STATUS: REG CLI FAX #: [phone] RAD NO: Page 2 Signed Report Patient Name: HEIDI MADRID Unit No: [id number] EXAMS: CPT CODE: [id number] US PREG AFTER 1ST TRI [id number] (Continued) [facility] NAME: HEIDI MADRID Radiology Department PHYS: STEPHANIEHilarioYvette Damian DO [address] : 1990 AGE: 29 SEX: F [place] [address] LOC: F.RAD PHONE #: [phone] EXAM DATE: 08/26/2019 STATUS: REG CLI FAX #: [phone] RAD NO:Page 3 Signed Report
[2022-07-31] MEDS ORDERED: PROMETHAZINE INJ 25 MG/ML AMP ONE (13:27)
[2022-07-31] MEDS ORDERED: NA CHLORIDE 0.9% 1,000 ML ONE (13:27)
[2022-07-31 14:03] LABS: Urine Blood Negative (Negative); Urine Glucose Trace (Negative); Urine Protein Trace (Negative); Urine Specific Gravity >=1.030 (1.005-1.030); Urine pH 5.5 (5.0-7.0)
[2022-07-31 14:06] LABS: Absolute Lymphocytes (CBC) 1.3 K/uL (0.7-4.9); Hematocrit 40.2 % (36.0-45.0); Lymphocytes % 17.5 % (15.3-44.8); MCV 85.1 fL (80-100); MPV 9.4 fL (7.6-11.3); RBC Red Blood Cell Count 4.72 M/uL (3.86-4.86)
[2022-07-31 14:09] LABS: Urine Specific Gravity/Preg >1.030 (1.005-1.030)
[2022-07-31 14:15] LABS: Potassium 3.7 mmol/L (3.5-5.1)
--- NOTE | 2022-07-31 16:04 | EDPHYS ---
Physician Documentation [facility] Name: Lluvia Word Age: 31 yrs Sex: Female : 1990 Arrival Date: 07/31/2022 Time: 13:04 Bed 13 Private MD: ED Physician Jimi Beebe HPI: 07/31 18:41 This 31 yrs old Female presents to ER via Ambulatory with complaints of Vomiting - 9 kb wks preg. 18:41 The patient presents to the emergency department with nausea, vomiting. Onset: The kb symptoms/episode began/occurred last week. Possible causes: . The symptoms are aggravated by nothing. The symptoms are alleviated by nothing. Associated signs and symptoms: Pertinent positives: nausea, vomiting. Severity of symptoms: At their worst the symptoms were moderate in the emergency department the symptoms are unchanged. The patient has not experienced similar symptoms in the past. The patient has not recently seen a physician. Pt reports she is 9 weeks and has been vomiting for the last week. States she has been unable to tolerate po intake for 2 days and has decreased urination. Last void was last night. 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 - Social history:: Smoking status: Patient denies any tobacco usage or history of. ROS: 18:41 Constitutional: Negative for fever, chills, and weight loss. kb 18:41 Abdomen/GI: Positive for nausea and vomiting, Negative for abdominal pain. 18:41 All other systems are negative. Exam: 18:41 Constitutional: This is a well developed, well nourished patient who is awake, alert, kb and in no acute distress. Head/Face: Normocephalic, atraumatic. ENT: Moist Mucous membranes Cardiovascular: Regular rate and rhythm with a normal S1 and S2. No gallops, murmurs, or rubs. No pulse deficits. Respiratory: Respirations even and unlabored. No increased work of breathing. Talking in full sentences Abdomen/GI: Soft, non-tender. No distention Skin: Warm, dry with normal turgor. Normal color. MS/ Extremity: Pulses equal, no cyanosis. Neurovascular intact. Full, normal range of motion. Neuro: Awake and alert, GCS 15, oriented to person, place, time, and situation. Moves all extremities. Normal gait. Vital Signs: 13:15 BP 142 / 101; Pulse 89; Resp 18; Temp 98.6; Pulse Ox 100% ; Weight 90.72 kg; Height 5 jh5 ft. 4 in. (162.56 cm); Pain 0/10; 14:00 BP 119 / 67; Pulse 81; Resp 18; Pulse Ox 100% on R/A; em6 15:00 BP 135 / 81; Pulse 81; Resp 18; Pulse Ox 100% on R/A; em6 15:58 BP 123 / 83; Pulse 80; Resp 18; Pulse Ox 100% on R/A; em6 13:15 Body Mass Index 34.33 (90.72 kg, 162.56 cm) jh5 MDM: 13:12 Patient medically screened. kb 16:02 Data reviewed: vital signs, nurses notes. Data interpreted: Pulse oximetry: on room air kb is 100 %. Interpretation: normal. Counseling: I had a detailed discussion with the patient and/or guardian regarding: the historical points, exam findings, and any diagnostic results supporting the discharge/admit diagnosis, lab results, the need for outpatient follow up, an OB/Gyne specialist, to return to the emergency department if symptoms worsen or persist or if there are any questions or concerns that arise at home. 16:03 ED course: Pt tolerating po intake. States she is feeling better. kb 07/31 13:13 Order name: CBC with Diff; Complete Time: 14:17 kb 07/31 13:13 Order name: Basic Metabolic Panel; Complete Time: 14:17 kb 07/31 14:03 Order name: Urine --Ancillary (enter results); Complete Time: 14:10 em1 07/31 14:03 Order name: Urine Dipstick-Ancillary; Complete Time: 14:04 EDMS 07/31 13:13 Order name: Urine Dipstick-Ancillary (obtain specimen); Complete Time: 14:02 kb 07/31 13:13 Order name: IV Start; Complete Time: 13:59 kb 07/31 14:18 Order name: PO challenge; Complete Time: 14:38 kb Administered Medications: 13:40 Drug: NS 0.9% 1000 ml Route: IV; Rate: 1000 ml; Site: right antecubital; hb 14:58 Follow up: Response: No adverse reaction; IV Status: Completed infusion; IV Intake: em6 1000ml 13:40 Drug: Phenergan (promethazine) 12.5 mg Route: IVP; Site: right antecubital; hb 14:20 Follow up: Response: No adverse reaction em6 14:54 Not Given (Physician Discretion): Phenergan (promethazine) 12.5 mg IVP once em6 14:54 Not Given (Physician Discretion): NS 0.9% 1000 ml IV at 1000 ml once em6 Disposition: 22:02 Co-signature as Attending Physician, Jimi Beebe DO I was immediately available on-site ms3 in the Emergency Department for consultation in the care of the patient. . Disposition Summary: 07/31/22 16:03 Discharge Ordered Location: Home kb Condition: Stable kb Diagnosis - Vomiting of , unspecified kb Followup: kb - With: Emergency Department - When: As needed - Reason: Worsening of condition Followup: kb - With: Private Physician - When: 2 - 3 days - Reason: Recheck today's complaints, Continuance of care, Re-evaluation by your physician Discharge Instructions: - Discharge Summary Sheet kb - Morning Sickness, [id number]-[id number] kb Forms: - Medication Reconciliation Form kb - Thank You Letter kb - Antibiotic Education kb - Prescription Opioid Use kb Prescriptions: - promethazine 12.5 mg Rectal suppository - insert 1 suppository by RECTAL route every 6 hours As needed; 16 suppository; kb Refills: 0, Product Selection Permitted Signatures: Dispatcher [employer] Gabriella Salas, DANDY-C DANDY-Ivis Fontanez RN RN Jimi Franco DO DO ms3 Mary Reyes RN RN jh5 January Miles RN em6 Corrections: (The following items were deleted from the chart) 16:03 16:02 Counseling: I had a detailed discussion with the patient and/or guardian kb regarding: the historical points, exam findings, and any diagnostic results supporting the discharge/admit diagnosis, radiology results, the need for outpatient follow up, an OB/Gyne specialist, to return to the emergency department if symptoms worsen or persist or if there are any questions or concerns that arise at home, kb
--- NOTE | 2022-07-31 16:04 | ER ---
Nurse's Notes [facility] Name: Lluvia Word Age: 31 yrs Sex: Female : 1990 Arrival Date: 07/31/2022 Time: 13:04 Bed 13 Private MD: Diagnosis: Vomiting of , unspecified Presentation: 07/31 13:15 Chief complaint: Patient states: 9 weeks ; vomiting x2 days taking phenergan Q6 jh5 and not helping. Coronavirus screen: Vaccine status: Patient reports being unvaccinated. Client denies travel out of the [place] in the last 14 days. Ebola Screen: Patient negative for fever greater than or equal to 101.5 degrees Fahrenheit, and additional compatible Ebola Virus Disease symptoms Patient denies exposure to infectious person. Patient denies travel to an Ebola-affected area in the 21 days before illness onset. Initial Sepsis Screen: Does the patient meet any 2 criteria? No. Patient's initial sepsis screen is negative. Does the patient have a suspected source of infection? No. Patient's initial sepsis screen is negative. Risk Assessment: Do you want to hurt yourself or someone else? Patient reports no desire to harm self or others. 13:15 Method Of Arrival: Ambulatory [facility] 13:15 Acuity: CONNER 3 [facility] 14:57 Onset of symptoms was July 29, 2022. em6 Triage Assessment: 13:16 General: Appears uncomfortable, well groomed, well developed, Behavior is calm, 5 cooperative, appropriate for age. GI: Reports nausea, vomiting. 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 - Social history:: Smoking status: Patient denies any tobacco usage or history of. Screenin:23 [facility] ED Fall Risk Assessment (Adult) History of falling in the last 3 months, em6 including since admission No falls in past 3 months (0 pts) Confusion or Disorientation No (0 pts) Intoxicated or Sedated No (0 pts) Impaired Gait No (0 pts) Mobility Assist Device Used No (0 pt) Altered Elimination No (0 pt) Score/Fall Risk Level 0 - 2 = Low Risk Oriented to surroundings, Maintained a safe environment, Educated pt \T\ family on fall prevention, incl call for assistance when getting out of bed, Assessed \T\ reinforced patient's understanding of fall precautions, Provided non-skid footwear, Hourly rounding (assess needs \T\ fall precautionary measures) done, Used ambulatory aids as needed (educated on \T\ assisted with), Used gait belt as appropriate. Abuse screen: Denies threats or abuse. Nutritional screening: No deficits noted. Tuberculosis screening: No symptoms or risk factors identified. Fall Risk Total Werner Fall Scale indicates No Risk (0-24 pts). 16:10 Humpty Dumpty Scale Fall Assessment Tool (age< 18yrs). em6 Assessment: 13:23 General: Appears in no apparent distress. Behavior is cooperative. Pain: Denies pain. em6 Neuro: Level of Consciousness is awake, alert, obeys commands, Oriented to person, place, time, situation. Cardiovascular: Patient's skin is warm and dry. Respiratory: Airway is patent Respiratory effort is even, unlabored, Respiratory pattern is regular, symmetrical, Breath sounds are clear bilaterally. GI: Abdomen is non-distended, Bowel sounds present X 4 quads. Abd is soft and non tender X 4 quads. : No signs and/or symptoms were reported regarding the genitourinary system. EENT: No signs and/or symptoms were reported regarding the EENT system. Derm: No signs and/or symptoms reported regarding the dermatologic system. Musculoskeletal: Circulation, motion, and sensation intact. Range of motion: intact in all extremities. 14:30 Reassessment: Patient appears in no apparent distress at this time. No changes from em6 previously documented assessment. Patient and/or family updated on plan of care and expected duration. Pain level reassessed. Patient is alert, oriented x 3, equal unlabored respirations, skin warm/dry/pink. 14:55 Reassessment: patient states feeling dizzy and blurred vision. provider notified and is em6 at bedside talking to patient. no new orders. 15:55 Reassessment: Patient appears in no apparent distress at this time. No changes from em6 previously documented assessment. Patient and/or family updated on plan of care and expected duration. Pain level reassessed. Patient is alert, oriented x 3, equal unlabored respirations, skin warm/dry/pink. Patient states symptoms have improved. Vital Signs: 13:15 BP 142 / 101; Pulse 89; Resp 18; Temp 98.6; Pulse Ox 100% ; Weight 90.72 kg; Height 5 [facility] ft. 4 in. (162.56 cm); Pain 0/10; 14:00 BP 119 / 67; Pulse 81; Resp 18; Pulse Ox 100% on R/A; em6 15:00 BP 135 / 81; Pulse 81; Resp 18; Pulse Ox 100% on R/A; em6 15:58 BP 123 / 83; Pulse 80; Resp 18; Pulse Ox 100% on R/A; em6 13:15 Body Mass Index 34.33 (90.72 kg, 162.56 cm) [facility] ED Course: 13:04 Patient arrived in ED. as 13:06 Gabriella Arthur FNP-C is [facility]. kb 13:06 Jimi Beebe DO is Attending Physician. kb 13:16 Triage completed. [facility] 13:16 Arm band placed on right wrist. [facility] 13:23 January Miles, RN is Primary Nurse. em6 13:23 Bed in low position. Call light in reach. Side rails up X 1. programming intern on. Pulse em6 ox on. NIBP on. Warm blanket given. 13:40 Inserted saline lock: 20 gauge in right antecubital area, using aseptic technique. hb Blood collected. 16:05 No provider procedures requiring assistance completed. IV discontinued, intact, em6 bleeding controlled, No redness/swelling at site. Pressure dressing applied. Administered Medications: 13:40 Drug: NS 0.9% 1000 ml Route: IV; Rate: 1000 ml; Site: right antecubital; hb 14:58 Follow up: Response: No adverse reaction; IV Status: Completed infusion; IV Intake: em6 1000ml 13:40 Drug: Phenergan (promethazine) 12.5 mg Route: IVP; Site: right antecubital; hb 14:20 Follow up: Response: No adverse reaction em6 14:54 Not Given (Physician Discretion): Phenergan (promethazine) 12.5 mg IVP once em6 14:54 Not Given (Physician Discretion): NS 0.9% 1000 ml IV at 1000 ml once em6 Medication: 16:10 VIS not applicable for this client. em6 Intake: 14:58 IV: 1000ml; Total: 1000ml. em6 Outcome: 16:03 Discharge ordered by MD. [place] 16:05 Discharged to home ambulatory. em6 16:05 Condition: stable 16:05 Discharge instructions given to patient, Instructed on discharge instructions, follow up and referral plans. medication usage, Demonstrated understanding of instructions, follow-up care, medications, Prescriptions given X 1. 16:11 Patient left the ED. em6 Signatures: Gabriella Arthur, AUTOMOTIVE GENERATOR REPAIRER-C AUTOMOTIVE GENERATOR REPAIRER-Roxann Meza as Ivis Vieira, RN RN Mary Reyes RN RN 5 January Miles RN RN em6
[2022-07-31 16:22] VITALS: TEMP 98.6; O2SAT 100
[2022-07-31 16:39] VITALS: BP 123/83
== END 2022-07-31 16:11 | disposition home or self-care (01) ==
LOC: ER 12:59
DX: O21.9 Vomiting of pregnancy, unspecified (principal); Z3A.09 9 weeks gestation of pregnancy; Z88.1 Allergy status to other antibiotic agents
CPT/HCPCS: 85025; 80048; 36415; 81025; 81003; J2550; J7030; 96361; 96374; 99284